=== PATIENT | female | born 1930 | race Caucasian/White ===

== ENCOUNTER 2017-11-17 17:04 | Inpatient (IN) | payer MEDICARE, MEDICAID ==
[~2017-11-17] VITALS: Ht 165.1 cm; Wt 72.8 kg
[~2017-11-17 17:04] MED LIST: ACET325S8 PO; ADVI200C9 PO; ASPI-130 PO; BENI40TA30 PO; CRAN1000 PO; CYAN1000P IM; MAGN400T19 PO; SYNT125T PO; TOPR50TA PO; VITA20002 PO; [UNRECOGNIZED DRUG - CODE] PO
[2017-11-17 17:12] VITALS: BP 146/66; PULSE 90; RESP 16; TEMP 98; O2SAT 97
[2017-11-17 17:55] LABS: AUTOMATED NEUTROPHIL # 9.5 TH/MM3 (1.8-7.7); BASOPHIL % 0.3 % (0.0-2.0); EOSINOPHIL % 0.1 % (0.0-4.0); HEMATOCRIT 32.6 % (35.0-46.0); HEMOGLOBIN 10.9 GM/DL (11.6-15.3); LYMPH % 4.4 % (9.0-44.0); LYMPHOCYTE # 0.5 TH/MM3 (1.0-4.8); MEAN CELL VOLUME 86.7 FL (80.0-100.0); MEAN CORPUSCULAR HGB CONC 33.4 % (32.0-36.0); MEAN PLATELET VOLUME 7.7 FL (7.0-11.0); MONO % 5.5 % (0.0-8.0); MONOCYTE # 0.6 TH/MM3 (0-0.9); NEUT % 89.7 % (16.0-70.0); PLATELET COUNT 270 TH/MM3 (150-450); RED BLOOD COUNT 3.77 MIL/MM3 (4.00-5.30); WHITE BLOOD COUNT 10.6 TH/MM3 (4.0-11.0)
[2017-11-17 18:10] LABS: INTERNATIONAL NORMALIZED RATIO 1.1 RATIO; PROTHROMBIN TIME - PATIENT 11.5 SEC (9.8-11.6)
[2017-11-17 18:14] LABS: ALBUMIN 3.2 GM/DL (3.4-5.0); AST (GOT) 63 U/L (15-37); BICARBONATE 25.4 MEQ/L (21.0-32.0); BLOOD UREA NITROGEN 10 MG/DL (7-18); CALCIUM 9.1 MG/DL (8.5-10.1); CHLORIDE 104 MEQ/L (98-107); CREATININE 0.76 MG/DL (0.50-1.00); GLOMERULAR FILTRATION RATE 72 ML/MIN (>89); GLUCOSE,RANDOM 134 MG/DL (74-106); MAGNESIUM 1.9 MG/DL (1.5-2.5); SODIUM (NA) 138 MEQ/L (136-145)
[2017-11-17 18:15] LABS: ALT (GPT) 28 U/L (10-53)
[2017-11-17 18:24] LABS: ALKALINE PHOSPHATASE 96 U/L (45-117); TOTAL BILIRUBIN ADULT 0.8 MG/DL (0.2-1.0); TOTAL PROTEIN 6.8 GM/DL (6.4-8.2)
--- NOTE | 2017-11-17 18:25 | RADRPT ---
EXAM DATE/TIME: 11/17/2017 17:56 [facility] COMPARISON: No previous studies available for comparison. INDICATIONS : Shortness of breath. MEDICAL HISTORY : No pertinent medical history. SURGICAL HISTORY : No pertinent surgical history. ENCOUNTER: Initial ACUITY: 1 day PAIN SCORE: 0/10 LOCATION: Bilateral chest FINDINGS: A single view of the chest demonstrates the lungs to be symmetrically aerated without evidence of mas s, infiltrate or effusion. The cardiomediastinal contours are unremarkable atherosclerotic calcifica tion in the aortic 9. Osseous structures are intact. CONCLUSION: No acute disease. Wolf Melendez MD on November 17, 2017 at 18:22 Board Certified Radiologist. This report was verified electronically.
--- NOTE | 2017-11-17 18:28 | RADRPT ---
EXAM DATE/TIME: 11/17/2017 18:00 [facility] COMPARISON: No previous studies available for comparison. INDICATIONS : Low back pain for four years. MEDICAL HISTORY : No pertinent medical history. SURGICAL HISTORY : No pertinent surgical history. ENCOUNTER: Initial ACUITY: >1 year PAIN SCORE: 10/10 LOCATION: Bilateral lumbar spine. FINDINGS: The bony structures appear osteopenic or osteoporotic with normal alignment and probable facet arthri tic change L4-5 and L5-S1. CONCLUSION: Osteopenia or osteoporosis. Degenerative facet arthritic change L4-5 and L5-S1 Wolf Melendez MD on November 17, 2017 at 18:24 Board Certified Radiologist. This report was verified electronically.
--- NOTE | 2017-11-17 18:29 | RADRPT ---
EXAM DATE/TIME: 11/17/2017 18:00 [facility] COMPARISON: No previous studies available for comparison. INDICATIONS : Right hip pain for four years. MEDICAL HISTORY : No pertinent medical history SURGICAL HISTORY : No pertinent surgical history. ENCOUNTER: Initial ACUITY: >1 year PAIN SCORE: 10/10 LOCATION: Right hip. FINDINGS: The bony structures are osteoporotic. Minimal narrowing the left hip joint with degenerative changes in lower lumbar spine. There is severe degenerative change of the right hip loss of articular cartila ge subchondral sclerosis and cyst formation. CONCLUSION: Severe degenerative change of the right hip. Wolf Melendez MD on November 17, 2017 at 18:26 Board Certified Radiologist. This report was verified electronically.
--- NOTE | 2017-11-17 18:42 | PD ---
Data Data Last Documented VS Vital Signs Date Time Temp Pulse Resp B/P (MAP) Pulse Ox O2 Delivery O2 Flow Rate FiO2 11/17/17 17:12 98.0 90 16 146/66 (92) 97 Orders Orders Electrocardiogram (11/17/17:) Complete Blood Count With Diff (11/17/17 17:22) Comprehensive Metabolic Panel (11/17/17:) Troponin I (11/17/17) Prothrombin Time / Inr (Pt) (11/17/17) Act Partial Throm Time (Ptt) (11/17/17) Urinalysis - C+S If Indicated (11/17/17) Magnesium (Mg) (11/17/17) Thyroid Stimulating Hormone (11/17/17) Chest, Single Ap (11/17/17) Iv Access Insert/Monitor (11/17/17) Ecg Monitoring (11/17/17) Oximetry (11/17/17) Hip, Ap Only W Ap Pelvis (11/17/17 ) Spine, Lumbar - Ap Only (11/17/17 ) Labs Laboratory Tests Test 11/17/17 17:36 White Blood Count 10.6 TH/MM3 Red Blood Count 3.77 MIL/MM3 Hemoglobin 10.9 GM/DL Hematocrit 32.6 % Mean Corpuscular Volume 86.7 FL Mean Corpuscular Hemoglobin 29.0 PG Mean Corpuscular Hemoglobin Concent 33.4 % Red Cell Distribution Width 14.0 % Platelet Count 270 TH/MM3 Mean Platelet Volume 7.7 FL Neutrophils (%) (Auto) 89.7 % Lymphocytes (%) (Auto) 4.4 % Monocytes (%) (Auto) 5.5 % Eosinophils (%) (Auto) 0.1 % Basophils (%) (Auto) 0.3 % Neutrophils # (Auto) 9.5 TH/MM3 Lymphocytes # (Auto) 0.5 TH/MM3 Monocytes # (Auto) 0.6 TH/MM3 Eosinophils # (Auto) 0.0 TH/MM3 Basophils # (Auto) 0.0 TH/MM3 CBC Comment DIFF FINAL Differential Comment Prothrombin Time 11.5 SEC Prothromb Time International Ratio 1.1 RATIO Activated Partial Thromboplast Time 28.6 SEC Blood Urea Nitrogen 10 MG/DL Creatinine 0.76 MG/DL Random Glucose 134 MG/DL Total Protein 6.8 GM/DL Albumin 3.2 GM/DL Calcium Level 9.1 MG/DL Magnesium Level 1.9 MG/DL Alkaline Phosphatase 96 U/L Aspartate Amino Transf (AST/SGOT) 63 U/L Alanine Aminotransferase (ALT/SGPT) 28 U/L Total Bilirubin 0.8 MG/DL Sodium Level 138 MEQ/L Potassium Level 3.6 MEQ/L Chloride Level 104 MEQ/L Carbon Dioxide Level 25.4 MEQ/L Anion Gap 9 MEQ/L Estimat Glomerular Filtration Rate 72 ML/MIN Troponin I 0.20 NG/ML Thyroid Stimulating Hormone 3rd Gen 3.080 uIU/ML [facility] Supervised Visit with LUCIAN: Yes Narrative Course The history, exam, and medical decision-making in the associated mid-level provider note were completed with my assistance. I reviewed and agree with the findings presented. I attest that I had a [id number] encounter with the patient on the same day, and personally performed and documented my assessment and findings in the medical record. *My assessment and Findings: 87-year-old woman presents emergency department with recurrent frequent falls, some weakness, hip pain, worsening over the past week or so. History of chronic problems of the right hip pain gotten worse, and she has had more frequent falls, for the past 2 days. She looks overall well. She is a positive troponin. She has been getting clearance for hip surgery. She had a stress test recently. We will plan on admission for further evaluation for serial troponins, repeat evaluation of the hip, PT alonzoal. Stuart Pimentel MD Nov 17, 2017 18:42
[2017-11-17 18:53] VITALS: BP 159/66; PULSE 73; PULSE 74; RESP 18; O2SAT 95; O2SAT 96
--- NOTE | 2017-11-17 19:14 | PD ---
HPI Chief Complaint: Hip Injury Time Seen by Provider: 17:22 Travel History International Travel<30 days: No Contact w/Intl Traveler<30days: No Traveled to known affect area: No History of Present Illness HPI 87-year-old female that presents to the ED for evaluation of multiple falls. Per patient and ambulance report patient has falling multiple times the past couple of weeks. Patient per ambulance report falls at least once a day and even has to go to her house at least once a day to help her get up. Patient has a history of right hip arthritis that will require hip replacement with Dr. Hunter. Per patient she just got her cast by Dr. Rice last week to see whether she will be a candidate for surgery and is continuing to follow up with different doctors to get her medical clearance and she have the surgery. She lives alone. Apparently patient had a fall yesterday but she also had a fall today which per patient was mild. Per patient she had another fall after the ambulance left and her friends left. This is what prompted evaluation. She denies hitting her head or losing consciousness. Per patient she landed on her head. She states having back and hip pain secondary to the hip pain as well as the multiple falls. She does have bruises in multiple areas of her body. She states that she is being treated currently for cellulitis of her lower legs bilaterally. She does have erythema and she states that she taking the antibiotics as prescribed by her doctor. The patient her pain currently is 4 out of 10. Per patient she is taking Tylenol for her pain with some relief. Per patient she is a walker at home but for the past 3-4 days she can barely even use it because she feels like her legs are no limited go and she is going to fall. She feels very weak on her legs and she is also noted that she's been feeling dizzy and lightheaded. Per patient she was dizzy when the ambulance showed up. Allergy to hydrocodone. PFSH Past Medical History Anemia: Yes (PERNICIOUS ) Cancer: No Cardiovascular Problems: No Diabetes: No Endocrine: Yes Gastrointestinal Disorders: No Genitourinary: No Hepatitis: No Hiatal Hernia: No Hypertension: Yes Immune Disorder: No Medical other: Yes (PERNISCIOUS ANEMIA) Musculoskeletal: Yes (ARTHRITIS, BACK PROBLEMS,OSTEOPOROSIS) Neurologic: Yes (TINGLING IN TOES AT NIGHT) Psychiatric: No Reproductive: No Respiratory: Yes (HISTORY OF WHOOPING COUGH A CHILD) Thyroid Disease: Yes Tetanus Vaccination: Unknown Influenza Vaccination: Yes ?: Not Past Surgical History AICD: No Endocrine Surgery: Yes (PARATHYROID TUMOR REMOVED 2006, THYROIDECTOMY 193) Joint Replacement: No Pacemaker: No Other Surgery: Yes (THYROIDECTOMY IN PAST, PARATHYROID SURG. 4 DAYS AGO.) Social History Alcohol Use: No Tobacco Use: No Substance Use: No Allergies-Medications (Allergen,Severity, Reaction): Coded Allergies: hydrocodone (Unverified Adverse Reaction, Mild, RASH, 05/21/17) PT STATES PROBABLY NOT AN ALLERGY BUT HAD SLIGHT RASH ON HYDROCODONE Reported Meds & Prescriptions Reported Meds & Active Scripts Active Reported Acetaminophen 325 Mg Tab 325 Mg PO Q4HPRN Advil (Ibuprofen) 200 Mg Cap 200 Mg PO Q4HPRN Aspirin EC Low Dose (Aspirin) 81 Mg Tab 81 Mg PO HS Vitamin B12 (Cyanocobalamin) 1,000 Mcg/Ml Inj 1,000 Mcg IM MONTHLY Cranberry (Cranberry (Vaccinium Macrocarp) 1,000 Mg Cap 4,200 Mg PO TID Toprol Xl (Metoprolol Succinate) 50 Mg Tabcr 50 Mg PO DAILY Vitamin D-3 (Cholecalciferol) 2 000 Tab 2,000 Unit PO DAILY Coq10 (Coenzyme Q10 (Ubidecarenone)) 50 Gm Pow 50 Gm PO BID Benicar (Olmesartan) 40 Mg Tab 40 Mg PO DAILY Magnesium Oxide (Magnesium Oxide (mg Supplement)) 400 Mg Tab 400 Mg PO BID Synthroid (Levothyroxine Sodium) 125 Mcg Tab 125 Mcg PO DAILY Review of Systems Except as stated in HPI: all other systems reviewed are Neg Physical Exam Narrative GENERAL: SKIN: Warm and dry. HEAD: Atraumatic. Normocephalic. EYES: Pupils equal and round. No scleral icterus. No injection or drainage. ENT: No nasal bleeding or discharge. Mucous membranes pink and moist. Tongue is midline. No uvula deviation. NECK: Trachea midline. No JVD. CARDIOVASCULAR: Regular rate and rhythm. No murmurs, S3, S4. RESPIRATORY: No accessory muscle use. Clear to auscultation. Breath sounds equal bilaterally. GASTROINTESTINAL: Abdomen soft, non-tender, nondistended. Hepatic and splenic margins not palpable. MUSCULOSKELETAL: Extremities without clubbing, cyanosis, or edema. No obvious deformities. Patient is evaluated late on her left side. She cannot put any weight on the right side secondary to pain. Patient has no obvious deformity noted. No lumbar, thoracic, cervical spine tenderness to palpation. Full range of motion of the upper and lower extremities with exception of the right hip which she has pain with any range of motion. 2+ pulses bilaterally. Sensation intact bilaterally. Patient has bilateral lower leg edema 1+ pitting edema with erythema on the anterior aspect of the legs bilaterally. Warm to the touch. NEUROLOGICAL: Awake and alert. No obvious cranial nerve deficits. Motor grossly within normal limits. Five out of 5 muscle strength in the arms and legs. Normal speech. PSYCHIATRIC: Appropriate mood and affect; insight and judgment normal. Data Data Last Documented VS Vital Signs Date Time Temp Pulse Resp B/P (MAP) Pulse Ox O2 Delivery O2 Flow Rate FiO2 11/17/17 19:11 18 92 Room Air 11/17/17 18:53 74 159/66 (97) 11/17/17 17:12 98.0 Orders Orders Electrocardiogram (11/17/17:22) Complete Blood Count With Diff (11/17/17 17:22) Comprehensive Metabolic Panel (11/17/17:22) Troponin I (11/17/17 17:22) Prothrombin Time / Inr (Pt) (11/17/17:22) Act Partial Throm Time (Ptt) (11/17/17:22) Urinalysis - C+S If Indicated (11/17/17:22) Magnesium (Mg) (11/17/17 17:22) Thyroid Stimulating Hormone (11/17/17:22) Chest, Single Ap (11/17/17:22) Iv Access Insert/Monitor (11/17/17 17:22) Ecg Monitoring (11/17/17:22) Oximetry (11/17/17:22) Hip, Ap Only W Ap Pelvis (11/17/17 ) Spine, Lumbar - Ap Only (11/17/17 ) Aspirin (Aspirin) (11/17/17 19:15) Heparin-D5w 25,000 U/250 Ml (Heparin-D5w (11/17/17 19:30) Act Partial Throm Time (Ptt) (11/17/17 19:22) Prothrombin Time / Inr (Pt) (11/17/17 19:22) Cbc No Diff, Includes Plts (11/17/17 19:22) Cbc No Diff, Includes Plts (11/20/17 06:00) Act Partial Throm Time (Ptt) (11/18/17 02:22) Occult Blood (Hemoccult) Stool (11/17/17 19:22) Admit Order (Ed Use Only) (11/17/17 19:25) Metoprolol Tartrate (Lopressor) (11/17/17 21:00) Nitroglycerin 2% Oint (Nitroglycerin 2% (11/17/17 19:30) Admit To Inpatient (11/17/17 ) Vital Signs (Adult) Q4H (11/17/17:20) Activity Bed Rest (11/17/17:20) Computer Laboratory Technician / Telemetry .CONTINUOUS (11/17/17:20) Intake + Output RAS.QSHIFT (11/17/17 19:20) Diet Heart Healthy (11/18/17 Breakfast) Sodium Chlor 0.9% 1000 Ml Inj (Ns 1000 M (11/17/17 20:00) Sodium Chloride 0.9% Flush (Ns Flush) (11/17/17 19:30) Sodium Chloride 0.9% Flush (Ns Flush) (11/17/17 21:00) Ondansetron Inj (Zofran Inj) (11/17/17 19:30) Comprehensive Metabolic Panel (11/18/17 06:00) Complete Blood Count With Diff (11/18/17 06:00) Troponin I (11/18/17 00:00) Troponin I (11/18/17 06:00) Pt Request For Service (11/17/17 19:20) Case Management Consult (11/17/17 19:20) Acetaminophen (Tylenol) (11/17/17 19:30) Morphine Inj (Morphine Inj) (11/17/17 19:30) Docusate Sodium-Senna (Becki-Colace) (11/17/17 21:00) Magnesium Hydroxide Liq (Milk Of Magnesi (11/17/17 19:30) Sennosides (Senokot) (11/17/17 19:30) Bisacodyl Supp (Dulcolax Supp) (11/17/17 19:30) Lactulose Liq (Lactulose Liq) (11/17/17 19:30) Inpatient Certification (11/17/17 ) Labs Laboratory Tests Test 11/17/17 17:36 White Blood Count 10.6 TH/MM3 Red Blood Count 3.77 MIL/MM3 Hemoglobin 10.9 GM/DL Hematocrit 32.6 % Mean Corpuscular Volume 86.7 FL Mean Corpuscular Hemoglobin 29.0 PG Mean Corpuscular Hemoglobin Concent 33.4 % Red Cell Distribution Width 14.0 % Platelet Count 270 TH/MM3 Mean Platelet Volume 7.7 FL Neutrophils (%) (Auto) 89.7 % Lymphocytes (%) (Auto) 4.4 % Monocytes (%) (Auto) 5.5 % Eosinophils (%) (Auto) 0.1 % Basophils (%) (Auto) 0.3 % Neutrophils # (Auto) 9.5 TH/MM3 Lymphocytes # (Auto) 0.5 TH/MM3 Monocytes # (Auto) 0.6 TH/MM3 Eosinophils # (Auto) 0.0 TH/MM3 Basophils # (Auto) 0.0 TH/MM3 CBC Comment DIFF FINAL Differential Comment Prothrombin Time 11.5 SEC Prothromb Time International Ratio 1.1 RATIO Activated Partial Thromboplast Time 28.6 SEC Blood Urea Nitrogen 10 MG/DL Creatinine 0.76 MG/DL Random Glucose 134 MG/DL Total Protein 6.8 GM/DL Albumin 3.2 GM/DL Calcium Level 9.1 MG/DL Magnesium Level 1.9 MG/DL Alkaline Phosphatase 96 U/L Aspartate Amino Transf (AST/SGOT) 63 U/L Alanine Aminotransferase (ALT/SGPT) 28 U/L Total Bilirubin 0.8 MG/DL Sodium Level 138 MEQ/L Potassium Level 3.6 MEQ/L Chloride Level 104 MEQ/L Carbon Dioxide Level 25.4 MEQ/L Anion Gap 9 MEQ/L Estimat Glomerular Filtration Rate 72 ML/MIN Troponin I 0.20 NG/ML Thyroid Stimulating Hormone 3rd Gen 3.080 uIU/ML [facility]DM Medical Decision Making Medical Screen Exam Complete: Yes Emergency Medical Condition: Yes Medical Record Reviewed: Yes Interpretation(s) CBC & BMP Diagram 11/17/17 17:36 Total Protein 6.8, Albumin 3.2 L, Calcium Level 9.1, Magnesium Level 1.9, Alkaline Phosphatase 96, Aspartate Amino Transf (AST/SGOT) 63 H, Alanine Aminotransferase (ALT/SGPT) 28, Total Bilirubin 0.8 EKG shows sinus rhythm with no sign of acute ischemia or arrhythmia related by me and attending. troponin of 0.20 CK negative Last Impressions Chest X-Ray 11/17/17 1722 Signed Impressions: Service Date/Time: Friday, November 17, 2017 17:56 - CONCLUSION: No acute disease. Wolf Melendez MD Lumbar Spine X-Ray 11/17/17 0000 Signed Impressions: Service Date/Time: Friday, November 17, 2017 18:00 - CONCLUSION: Osteopenia or osteoporosis. Degenerative facet arthritic change L4-5 and L5-S1 Wolf Melendez MD Hip and Pelvis X-Ray 11/17/17 0000 Signed Impressions: Service Date/Time: Friday, November 17, 2017 18:00 - CONCLUSION: Severe degenerative change of the right hip. Wolf Melendez MD Differential Diagnosis Fall versus chest pain versus ACS versus weakness versus fracture versus inability to ambulate versus N STEMI Narrative Course 87-year-old female that presents to the ED for evaluation of falls and pain. Patient was properly examined and was found to have signs and symptoms of unclear etiology with appears to be likely deconditioning secondary to significant arthritis of her right hip and inability to ambulate because of the pain. She also states that she feels dizzy. Because of the multiple falls of the recommends imaging and labs to make sure patient doesn't have anything acute especially because of her weakness. Labs and imaging came back negative for acute disease but did show severe arthritis. Patient does have a positive troponin of 0.20 with the first time she's been positive in the past. I spoke with my attending Dr. Pimentel who evaluated the patient and recommends admission for further eval of this as well as patient will likely require placement as she lives by herself and she cannot take care of herself. Dr. Gonzalez was contacted and wants patient to be admitted. Wanted me to consult with cardiology and to start patient on heparin to rule out NSTEMI. I discussed the case with Dr. Gonzalez who agrees with consult in the hospital. Diagnosis Primary Impression: NSTEMI (non-ST elevated myocardial infarction) Additional Impressions: Arthritis of hip Multiple falls Admitting Information Admitting Physician Requests: Admit Сергей Pierson Nov 17, 2017 19:14
[2017-11-17] MEDS ORDERED: ASPIRIN 325 MG TAB PO ONE (19:15)
--- NOTE | 2017-11-17 19:28 | HHI.HP ---
HPI Service [facility] Primary Care Physician Unknown Admission Diagnosis NSTEMI, multiple falls, inabiltiy to ambulate Diagnoses: (1) NSTEMI (non-ST elevated myocardial infarction) Diagnosis: Principal (2) Recurrent falls Diagnosis: Principal (3) Right hip pain Diagnosis: Principal (4) Dehydration Diagnosis: Principal Travel History International Travel<30 Days: No Contact w/Intl Traveler <30 Da: No Traveled to Known Affected Are: No History of Present Illness This is an 87-year-old female with a PMH of HTN, Hypothyroidism, Arthritis, Anemia and Chronic Right Hip Pain was brought to the ER by EMS secondary to right hip pain with difficulty ambulating. Per patient, she's been following w / Dr. Billings for right hip pain, s/p PT and right hip injections w/ minimal improvement. Plan was for likely surgical intervention, however referred to Dr. Rice for pre-op clearance. Per patient, seen by Dr. Rice w/ normal work up. Today, w/ persistent right hip pain, unable to ambulate even w / walker. Pain is constant, severe, 10/10, worse w/ movement and ambulation. Multiple falls due to hip pain and gait instability. No head trauma or LOC. On arrival, BP 146/66, HR 90, O2 sat 97% on RA, Afebrile. CBC essentially unremarkable. GFR 72. Troponin 0.20. EKG with no acute ischemia. CXR no acute findings. Hip X-ray with severe degenerative change of the right hip. Lumbar X-ray osteopenia or osteoporosis. S/p ASA, started on Heparin gtt. Dr. Thomas consulted, will eval in am. Review of Systems Except as stated in HPI: all other systems reviewed are Neg ROS: 14 point review of systems otherwise negative. Past Family Social History Past Medical History PMH: HTN, Hypothyroidism, Arthritis, Anemia and Chronic Right Hip Pain Past Surgical History PAST SURGICAL HISTORY: Parathyroidectomy, Thyroidectomy Allergies: Coded Allergies: hydrocodone (Unverified Adverse Reaction, Mild, RASH, 05/21/17) PT STATES PROBABLY NOT AN ALLERGY BUT HAD SLIGHT RASH ON HYDROCODONE Family History PAST FAMILY HISTORY: Reviewed. No h/o DM or CAD Social History PAST SOCIAL HISTORY: Negative for alcohol, tobacco or drugs. Physical Exam Vital Signs Vital Signs Date Time Temp Pulse Resp B/P (MAP) Pulse Ox O2 Delivery O2 Flow Rate FiO2 11/17/17 19:11 18 92 Room Air 11/17/17 18:53 74 18 159/66 (97) 95 Room Air 11/17/17 18:53 73 96 11/17/17 17:12 98.0 90 16 146/66 (92) 97 Physical Exam PE: GENERAL: Extremely pleasant elderly white female in no acute distress. HEENT: PERRLA, EOMI. No scleral icterus or conjunctival pallor. No lid lag or facial droop. CARDIOVASCULAR: Regular rate and rhythm. No obvious murmurs to auscultation. No chest tenderness to palpation. RESPIRATORY: No obvious rhonchi or wheezing. Clear to auscultation. Breath sounds equal bilaterally. GASTROINTESTINAL: Abdomen soft, non-tender, nondistended. BS normal. MUSCULOSKELETAL: Extremities without clubbing, cyanosis, or edema. No obvious deformities. Decreased ROM of RLE due to pain. +erythema/edema bilateral anterior lower extremities. NEUROLOGICAL: Awake, alert and oriented x4. No focal neurologic deficits. Moving both upper and lower extremities spontaneously. Laboratory Laboratory Tests Test 11/17/17 17:36 White Blood Count 10.6 Red Blood Count 3.77 Hemoglobin 10.9 Hematocrit 32.6 Mean Corpuscular Volume 86.7 Mean Corpuscular Hemoglobin 29.0 Mean Corpuscular Hemoglobin Concent 33.4 Red Cell Distribution Width 14.0 Platelet Count 270 Mean Platelet Volume 7.7 Neutrophils (%) (Auto) 89.7 Lymphocytes (%) (Auto) 4.4 Monocytes (%) (Auto) 5.5 Eosinophils (%) (Auto) 0.1 Basophils (%) (Auto) 0.3 Neutrophils # (Auto) 9.5 Lymphocytes # (Auto) 0.5 Monocytes # (Auto) 0.6 Eosinophils # (Auto) 0.0 Basophils # (Auto) 0.0 CBC Comment DIFF FINAL Differential Comment Prothrombin Time 11.5 Prothromb Time International Ratio 1.1 Activated Partial Thromboplast Time 28.6 Blood Urea Nitrogen 10 Creatinine 0.76 Random Glucose 134 Total Protein 6.8 Albumin 3.2 Calcium Level 9.1 Magnesium Level 1.9 Alkaline Phosphatase 96 Aspartate Amino Transf (AST/SGOT) 63 Alanine Aminotransferase (ALT/SGPT) 28 Total Bilirubin 0.8 Sodium Level 138 Potassium Level 3.6 Chloride Level 104 Carbon Dioxide Level 25.4 Anion Gap 9 Estimat Glomerular Filtration Rate 72 Troponin I 0.20 Thyroid Stimulating Hormone 3rd Gen 3.080 Result Diagram: 11/17/17 1736 11/17/171735 Caprini VTE Risk Assessment Caprini VTE Risk Assessment: Mod/High Risk (score >= 2) Caprini Risk Assessment Model Point Value = 1 Point Value = 2 Point Value = 3 Point Value = 5 Age 41-60 Minor surgery BMI > 25 kg/m2 Swollen legs Varicose veins or History of unexplained or recurrent spontaneous Oral contraceptives or hormone replacement Sepsis (< 1 month) Serious lung disease, including pneumonia (< 1 month) Abnormal pulmonary function Acute myocardial infarction Congestive heart failure (< 1 month) History of inflammatory bowel disease Medical patient at bed rest Age 61-74 Arthroscopic surgery Major open surgery (> 45 min) Laparoscopic surgery (> 45 min) Malignancy Confined to bed (> 72 hours) Immobilizing plaster cast Central venous access Age >= 75 History of VTE Family history of VTE Factor V Leiden Prothrombin [id number] Lupus anticoagulant Anticardiolipin antibodies Elevated serum homocysteine Heparin-induced thrombocytopenia Other congenital or acquired thrombophilia Stroke (< 1 month) Elective arthroplasty Hip, pelvis, or leg fracture Acute spinal cord injury (< 1 month) Prophylaxis Regimen Total Risk Factor Score Risk Level Prophylaxis Regimen 0-1 Low Early ambulation 2 Moderate Order ONE of the following: *Sequential Compression Device (SCD) *Heparin 5000 units SQ BID 3-4 Higher Order ONE of the following medications: *Heparin 5000 units SQ TID *Enoxaparin/Lovenox 40 mg SQ daily (WT < 150 kg, CrCl > 30 mL/min) *Enoxaparin/Lovenox 30 mg SQ daily (WT < 150 kg, CrCl > 10-29 mL/min) *Enoxaparin/Lovenox 30 mg SQ BID (WT < 150 kg, CrCl > 30 mL/min) AND/OR *Sequential Compression Device (SCD) 5 or more Highest Order ONE of the following medications: *Heparin 5000 units SQ TID (Preferred with Epidurals) *Enoxaparin/Lovenox 40 mg SQ daily (WT < 150 kg, CrCl > 30 mL/min) *Enoxaparin/Lovenox 30 mg SQ daily (WT < 150 kg, CrCl > 10-29 mL/min) *Enoxaparin/Lovenox 30 mg SQ BID (WT < 150 kg, CrCl > 30 mL/min) AND *Sequential Compression Device (SCD) Assessment and Plan Problem List: (1) NSTEMI (non-ST elevated myocardial infarction) ICD Code: I21.4 - Non-ST elevation (NSTEMI) myocardial infarction Status: Acute (2) Right hip pain ICD Code: M25.551 - Pain in right hip (3) Recurrent falls ICD Code: R29.6 - Repeated falls (4) Dehydration ICD Code: E86.0 - Dehydration Assessment and Plan A/P: 1. NSTEMI: Trop 0.20, EKG w/ no acute ischemia, no c/o chest pain. Recently following w/ Dr. Rice as outpatient for pre-op eval for possible right hip surgery, reports negative work up. Continue w/ Heparin, Start Metoprolol/ Statin. NTG/Morphine prn as needed. Check serial cardiac enzymes for trend. Admit to [facility], place on telemetry. Dr. Thomas consulted, will eval in am. 2. Right Hip Pain: Acute on Chronic. Progressive. Secondary to severe degenerative disease. Following w/ Dr. Billings as outpatient, conservative treatment w/ PT and hip injections w/ no improvement, progressive decline in functional status. Consult Dr. Billings for further evaluation, will need stabilization from cardiac standpoint prior to surgical intervention. Analgesics/antiemetics as needed. PT for eval/tx. Hip X-ray w/ severe degenerative disease, images reviewed by me. 3. Recurrent Falls: secondary to hip pain w/ worsening functional status. No head trauma or LOC reported. Lumbar X-ray w/ no acute findings, images reviewed by me. PT for eval/tx. Will likely need social work assistance for placement as pt lives alone. 4. Dehydration: GFR 72. IVF for hydration, repeat labs in am. Check U/a to eval for possible underlying UTI. 5. DVT Prophylaxis: Heparin gtt 6. Social work for d/c planning as needed 7. Case discussed at length w/ ER physician, labs/records/imaging reviewed by me. Physician Certification 2 Midnight Certification Type: Admission for Inpatient Services Order for Inpatient Services The services are ordered in accordance with Medicare regulations or non- Medicare payer requirements, as applicable. In the case of services not specified as inpatient-only, they are appropriately provided as inpatient services in accordance with the 2-midnight benchmark. Estimated LOS (days): 2 days is the estimated time the patient will need to remain in the hospital, assuming treatment plan goals are met and no additional complications. Post-Hospital Plan: Not yet determined Yolande Gonzalez MD Nov 17, 2017 19:28
[2017-11-17] MEDS ORDERED: LACTULOSE SYRUP 20 GM/30 ML CUP PO PRN (19:30)
[2017-11-17] MEDS ORDERED: SODIUM CHLORIDE 0.9% FLUSH 10 ML FLUSH IV FLUSH PRN (19:30)
[2017-11-17] MEDS ORDERED: ONDANSETRON HCL 4 MG/2 ML VIAL IVP PRN (19:30)
[2017-11-17] MEDS ORDERED: MAGNESIUM HYDROXIDE SUSP 30 ML CUP PO PRN (19:30)
[2017-11-17] MEDS ORDERED: ACETAMINOPHEN 325 MG TAB PO PRN (19:30)
[2017-11-17] MEDS ORDERED: NITROGLYCERIN 2% OINT 1 GM PACKET TOPICAL PRN (19:30)
[2017-11-17] MEDS ORDERED: SENNOSIDES 8.6 MG TAB PO PRN (19:30)
[2017-11-17] MEDS ORDERED: BISACODYL 10 MG SUPP RECTAL PRN (19:30)
[2017-11-17 20:00] VITALS: BP 170/71; PULSE 74; RESP 17; O2SAT 93
[2017-11-17 21:00] VITALS: BP 167/66; PULSE 80; RESP 18; O2SAT 96
[2017-11-17] MEDS: DOCUSATE SODIUM 50 MG/SENNA 8.6 MG TAB PO SCH (21:25)
[2017-11-17] MEDS: METOPROLOL TARTRATE 25 MG TAB PO SCH (21:25)
[2017-11-17] MEDS: SODIUM CHLORIDE 0.9% FLUSH 10 ML FLUSH IV FLUSH SCH (21:25)
[2017-11-17] MEDS: HEPARIN-D5W 25,000 U/250 ML 250 ML IV PRN (21:49)
[2017-11-17 22:00] VITALS: BP 136/65; PULSE 80; RESP 16; O2SAT 96
[2017-11-17 22:07] LABS: BILIRUBIN, URINE NEG (NEG); BLOOD, URINE TRACE (NEG); GLUCOSE,URINE NEG (NEG); KETONE, URINE 10 mg/dL (NEG); MUCUS URINE FEW /lpf (OCC); NITRITE,URINE NEG (NEG); SQUAMOUS EPITHELIAL CELL URINE <1 /hpf (0-5); URINE COLOR YELLOW (YELLW/STRAW); URINE LEUKOCYTE ESTERASE TRACE (NEG)
[2017-11-18] VITALS (17 sets, daily range): BP systolic 136–184; BP diastolic 64–81; PULSE 60–92; RESP 16–20; TEMP 98–98.4; O2SAT 95–100
[2017-11-18] MEDS ORDERED: LOSA50TA PO (00:26)
[2017-11-18] MEDS ORDERED: SYNT112T PO (00:26)
[2017-11-18] MEDS ORDERED: METO50TA PO (00:26)
[2017-11-18] MEDS: SODIUM CHLOR 0.9% 1000 ML INJ 1,000 ML IV SCH ×3 (01:26→16:47)
[2017-11-18] MEDS ORDERED: LEVO50TA4 PO (01:53)
[2017-11-18] MEDS: LEVOTHYROXINE SODIUM 112 MCG TAB PO SCH (05:49)
[2017-11-18 06:29] LABS: AUTOMATED NEUTROPHIL # 6.5 TH/MM3 (1.8-7.7); BASOPHIL % 0.5 % (0.0-2.0); EOSINOPHIL # 0.2 TH/MM3 (0-0.4); EOSINOPHIL % 1.7 % (0.0-4.0); HEMATOCRIT 31.1 % (35.0-46.0); HEMOGLOBIN 10.5 GM/DL (11.6-15.3); LYMPH % 9.8 % (9.0-44.0); LYMPHOCYTE # 0.9 TH/MM3 (1.0-4.8); MEAN CORPUSCULAR HGB CONC 33.8 % (32.0-36.0); MEAN PLATELET VOLUME 8.3 FL (7.0-11.0); MONO % 13.2 % (0.0-8.0); MONOCYTE # 1.2 TH/MM3 (0-0.9); NEUT % 74.8 % (16.0-70.0); PLATELET COUNT 260 TH/MM3 (150-450); RED BLOOD COUNT 3.61 MIL/MM3 (4.00-5.30); RED CELL DISTRIBUTION WIDTH 14.2 % (11.6-17.2); WHITE BLOOD COUNT 8.7 TH/MM3 (4.0-11.0)
[2017-11-18 06:42] LABS: ALBUMIN 2.9 GM/DL (3.4-5.0); AST (GOT) 65 U/L (15-37); BICARBONATE 25.4 MEQ/L (21.0-32.0); BLOOD UREA NITROGEN 8 MG/DL (7-18); CALCIUM 8.3 MG/DL (8.5-10.1); CHLORIDE 106 MEQ/L (98-107); CREATININE 0.58 MG/DL (0.50-1.00); GLOMERULAR FILTRATION RATE 98 ML/MIN (>89); GLUCOSE,RANDOM 82 MG/DL (74-106); SODIUM (NA) 140 MEQ/L (136-145)
[2017-11-18 06:47] LABS: ALKALINE PHOSPHATASE 85 U/L (45-117); ALT (GPT) 23 U/L (10-53); TOTAL BILIRUBIN ADULT 0.7 MG/DL (0.2-1.0); TOTAL PROTEIN 6.2 GM/DL (6.4-8.2); TROPONIN I 0.17 NG/ML (0.02-0.05)
--- NOTE | 2017-11-18 08:04 | PD.CONS ---
HPI Service [facility] Consult Requested By Primary Care Physician Unknown Admission Diagnosis NSTEMI, multiple falls, inabiltiy to ambulate Diagnoses: (1) NSTEMI (non-ST elevated myocardial infarction) (2) Right hip pain (3) Recurrent falls (4) Dehydration Chief Complaint: Right Hip Pain with known severe osteoarthritis History of Present Illness 87 yo female known to me with known severe right hip osteoarthritis. She was in the process and obtaining medical and cardiac clearance for hip replacement. She has now had increasing disability and multiple fails. She has been treated for bilateral lower extremity swelling and erythema which was believed to be cellulitis. Past Family Social History Past Medical History PMH: HTN, Hypothyroidism, Arthritis, Anemia and Chronic Right Hip Pain Past Surgical History PAST SURGICAL HISTORY: Parathyroidectomy, Thyroidectomy Allergies: Coded Allergies: hydrocodone (Unverified Adverse Reaction, Mild, RASH, 05/21/17) PT STATES PROBABLY NOT AN ALLERGY BUT HAD SLIGHT RASH ON HYDROCODONE Active Ordered Medications Current Medications Medications (Trade) Dose Ordered Sig/Juan Route Start Time Stop Time Status Last Admin Heparin Sodium/ Dextrose 250 ml @ 9 mls/hr TITRATE PRN IV 11/17/17 19:30 11/17/17 21:49 (Lopressor) 25 mg Q12HR PO 11/17/17 21:00 11/17/17 21:25 (Nitroglycerin 2% Oint) 0.5 inch Q6H PRN TOPICAL 11/17/17 19:30 Sodium Chloride 1,000 ml @ 100 mls/hr Q10H IV 11/17/17 20:00 11/18/17 05:49 (NS Flush) 2 ml UNSCH PRN IV FLUSH 11/17/17 19:30 (NS Flush) 2 ml BID IV FLUSH 11/17/17 21:00 11/17/17 21:25 (Zofran Inj) 4 mg Q6H PRN IVP 11/17/17 19:30 (Tylenol) 650 mg Q6H PRN PO 11/17/17 19:30 (Morphine Inj) 2 mg Q3H PRN IV PUSH 11/17/17 19:30 (Becki-Colace) 1 tab BID PO 11/17/17 21:00 11/17/17 21:25 (Milk Of Magnesia Liq) 30 ml Q12H PRN PO 11/17/17 19:30 (Senokot) 17.2 mg Q12H PRN PO 11/17/17 19:30 (Dulcolax Supp) 10 mg DAILY PRN RECTAL 11/17/17 19:30 (Lactulose Liq) 30 ml DAILY PRN PO 11/17/17 19:30 (Pneumovax-23 Inj) 25 mcg ONCE ONCE IM 11/19/17 10:00 11/19/17 10:01 (Synthroid) 50 mcg Bowman@0600 PO 11/24/17 06:00 (Synthroid) 112 mcg MoTuWeThFrSa@0600 PO 11/18/17 06:00 11/18/17 05:49 (Cozaar) 50 mg DAILY PO 11/18/17 09:00 Reported Meds & Active Scripts Active Reported Levothyroxine (Levothyroxine Sodium) 50 Mcg Tab 50 Mcg PO DAILY SUNDAYS ONLY Losartan (Losartan Potassium) 50 Mg Tab 50 Mg PO DAILY Synthroid (Levothyroxine Sodium) 112 Mcg Tab 112 Mcg PO DAILY SATURDAY THROUGH SATURDAY Metoprolol Tartrate 50 Mg Tab 50 Mg PO BID Family History PAST FAMILY HISTORY: Reviewed. No h/o DM or CAD Social History PAST SOCIAL HISTORY: Negative for alcohol, tobacco or drugs. Physical Exam Vital Signs Vital Signs Date Time Temp Pulse Resp B/P (MAP) Pulse Ox O2 Delivery O2 Flow Rate FiO2 11/18/17 06:00 60 11/18/17 05:00 64 11/18/17 04:00 62 11/18/17 03:45 70 16 136/68 (90) 95 11/18/17 03:00 63 11/18/17 02:00 82 11/18/17 01:20 82 11/18/17 01:06 98.0 77 18 158/73 (101) 95 11/18/17 01:02 11/18/17 00:20 82 16 163/71 (101) 97 Nasal Cannula 2.00 11/17/17 22:00 80 16 136/65 (88) 96 Nasal Cannula 2.00 11/17/17 21:00 80 18 167/66 (99) 96 Nasal Cannula 2.00 11/17/17 20:00 74 17 170/71 (104) 93 Room Air 11/17/17 19:11 18 92 Room Air 11/17/17 18:53 74 18 159/66 (97) 95 Room Air 11/17/17 18:53 73 96 11/17/17 17:12 98.0 90 16 146/66 (92) 97 Physical Exam Left hip nontender range of motion Right hip tender limited range of motion Bilateral pulses intact Bialteral 2-3+ edema bialteral 2+ knee effusion neuro intact Laboratory Laboratory Tests Test 11/17/17 17:36 11/17/17 21:30 11/18/17 00:10 11/18/17 05:14 White Blood Count 10.6 8.7 Red Blood Count 3.77 3.61 Hemoglobin 10.9 10.5 Hematocrit 32.6 31.1 Mean Corpuscular Volume 86.7 86.0 Mean Corpuscular Hemoglobin 29.0 29.0 Mean Corpuscular Hemoglobin Concent 33.4 33.8 Red Cell Distribution Width 14.0 14.2 Platelet Count 270 260 Mean Platelet Volume 7.7 8.3 Neutrophils (%) (Auto) 89.7 74.8 Lymphocytes (%) (Auto) 4.4 9.8 Monocytes (%) (Auto) 5.5 13.2 Eosinophils (%) (Auto) 0.1 1.7 Basophils (%) (Auto) 0.3 0.5 Neutrophils # (Auto) 9.5 6.5 Lymphocytes # (Auto) 0.5 0.9 Monocytes # (Auto) 0.6 1.2 Eosinophils # (Auto) 0.0 0.2 Basophils # (Auto) 0.0 0.0 CBC Comment DIFF FINAL DIFF FINAL Differential Comment Prothrombin Time 11.5 Prothromb Time International Ratio 1.1 Activated Partial Thromboplast Time 28.6 47.4 Blood Urea Nitrogen 10 8 Creatinine 0.76 0.58 Random Glucose 134 82 Total Protein 6.8 6.2 Albumin 3.2 2.9 Calcium Level 9.1 8.3 Magnesium Level 1.9 Alkaline Phosphatase 96 85 Aspartate Amino Transf (AST/SGOT) 63 65 Alanine Aminotransferase (ALT/SGPT) 28 23 Total Bilirubin 0.8 0.7 Sodium Level 138 140 Potassium Level 3.6 3.0 Chloride Level 104 106 Carbon Dioxide Level 25.4 25.4 Anion Gap 9 9 Estimat Glomerular Filtration Rate 72 98 Troponin I 0.20 0.18 0.17 Thyroid Stimulating Hormone 3rd Gen 3.080 Urine Color YELLOW Urine Turbidity CLEAR Urine pH 6.0 Urine Specific [place] 1.019 Urine Protein 30 Urine Glucose (UA) NEG Urine Ketones 10 Urine Occult Blood TRACE Urine Nitrite NEG Urine Bilirubin NEG Urine Urobilinogen LESS THAN 2.0 Urine Leukocyte Esterase TRACE Urine RBC 5 Urine WBC 3 Urine Squamous Epithelial Cells <1 Urine Mucus FEW Microscopic Urinalysis Comment CULT NOT INDICATED Result Diagram: 11/18/1714 11/18/17513 Assessment & Plan Problem List: (1) Osteoarthritis of right hip ICD Codes: M16.11 - Unilateral primary osteoarthritis, right hip Assessment and Plan Severe fight hip osteoarthritis She is indicated for medical management for her edema, ankle erythema and elevated troponin levels. Current conservative management for hip: Physical therapy Ultracet I am available if any orthopedic questions arise. Ariel Billings MD Nov 18, 2017 08:04
[2017-11-18] MEDS: METOPROLOL TARTRATE 25 MG TAB PO SCH ×2 (09:21→21:05)
[2017-11-18] MEDS: LOSARTAN 50 MG TAB PO SCH (09:21)
[2017-11-18] MEDS: DOCUSATE SODIUM 50 MG/SENNA 8.6 MG TAB PO SCH ×2 (09:21→21:05)
[2017-11-18] MEDS: SODIUM CHLORIDE 0.9% FLUSH 10 ML FLUSH IV FLUSH SCH ×2 (09:21→21:05)
--- NOTE | 2017-11-18 09:40 | MB ---
cc: NAE JOHNSON MD DATE OF CONSULTATION 11/18/2017 REASON FOR CONSULTATION Elevated troponin. HISTORY OF PRESENT ILLNESS Mrs. Alana Singleton is an 87-year-old patient who does have a history of hypertension and hyperlipidemia. She also has a history of severe arthritis and had a pending hip surgery. She consequently within the last month underwent nuclear stress test which showed normal perfusion and ejection fraction. The patient reports that she was having difficulties with her gait and fell which precipitated her emergency room visit. She had denied any cardiac complaints including chest pain, shortness of breath, palpitations. She did note, however, that she had lower extremity edema up her thigh with bright pink coloring. Her primary placed her on antibiotics several days ago and she is doing better. PAST MEDICAL HISTORY 1. Pernicious anemia. 2. Arthritis. 3. Dizziness. 4. Dyspnea on exertion. 5. Hypertension. 6. Hyperlipidemia. 7. Mild mitral and tricuspid regurgitation. 8. Hypothyroidism. OUTPATIENT MEDICATIONS 1. Synthroid. 2. Amlodipine. 3. B12. 4. Lasix. 5. Losartan. 6. Meclizkine. 7. Metoprolol. 8. Simvastatin. FAMILY HISTORY Noncontributory. SOCIAL HISTORY The patient is a former smoker. ALLERGIES HYDROCODONE. NIACIN. REVIEW OF SYSTEMS Except as mentioned in the HPI, all 12 systems are negative. PHYSICAL EXAMINATION VITAL SIGNS: On physical examination vital signs are stable. IN GENERAL: She is a well-appearing female who is in no apparent distress. NECK: Her neck is free from JVD. LUNGS: Bilaterally clear to auscultation. CARDIOVASCULAR EXAMINATION: She has a normal S1 and S2. There is a 2/6 systolic murmur. No rubs or gallops are appreciated. ABDOMEN: The abdomen is soft. EXTREMITIES: The extremities have 1+ edema and are erythematous. IMPRESSIONS Elevated troponin - The patient's troponin is somewhat flatly elevated at about 0.2. It is doubtful that it is a primary non-ST elevation [place], though this cannot be completely excluded at this time. The troponins may be elevated from CHF versus secondary to her fall versus [place] versus other. Again, she just had a normal nuclear stress test and has not had any cardiac symptoms thus I think it is doubtful it is a primary [place]. At this point I would like to have further evaluation with a CK and MB to help discern if this is perhaps from her fall. As well I have requested an echocardiogram to also help sort through and make sure her EF is normal. Orthopedic Clearance - While the patient was at moderate risk previously, right now her risk would be high to prohibitive as she is apparently having an acute event and further clarification is needed. Cellulitis - This will be managed by the primary team as the antibiotics were started as an outpatient by her primary. Nae Johnson M.D. LEN/SSB /9:11 AM /9:27 AM
--- NOTE | 2017-11-18 11:13 | EKG ---
Date Performed: 11/17/2017 Time Performed: 19:08:20 PTAGE: 87 years EKG: Sinus rhythm POSSIBLE LEFT ATRIAL ENLARGEMENT BORDERLINE ECG Since the prior tracing, there has been no significa nt change PREVIOUS TRACING DOCTOR: Juan Pablo Viramontes Interpretating Date/Time 11/18/2017 11:07:00
[2017-11-18] MEDS ORDERED: POTASSIUM CHLORIDE 10 MEQ CONTROLLED RELEASE TAB PO ONE ×2 (13:00→17:00)
--- NOTE | 2017-11-18 13:01 | HHI.PR ---
Subjective Remarks resting comfortably with no distress. denies chest pain or sob. afebrile. d/w the RN. Objective Vitals Vital Signs Date Time Temp Pulse Resp B/P (MAP) Pulse Ox O2 Delivery O2 Flow Rate FiO2 11/18/17 08:00 98.4 73 18 153/64 (93) 98 11/18/17 08:00 90 11/18/17 06:00 60 11/18/17 05:00 64 11/18/17 04:00 62 11/18/17 03:45 70 16 136/68 (90) 95 11/18/17 03:00 63 11/18/17 02:00 82 11/18/17 01:20 82 11/18/17 01:06 98.0 77 18 158/73 (101) 95 11/18/17 01:02 11/18/17 00:20 82 16 163/71 (101) 97 Nasal Cannula 2.00 11/17/17 22:00 80 16 136/65 (88) 96 Nasal Cannula 2.00 11/17/17 21:00 80 18 167/66 (99) 96 Nasal Cannula 2.00 11/17/17 20:00 74 17 170/71 (104) 93 Room Air 11/17/17 19:11 18 92 Room Air 11/17/17 18:53 74 18 159/66 (97) 95 Room Air 11/17/17 18:53 73 96 11/17/17 17:12 98.0 90 16 146/66 (92) 97 I/O 11/17/17 11/17/17 11/17/17 11/18/17 11/18/17 11/18/17 06:59 14:59 22:59 06:59 14:59 22:59 Intake Total 671 ml Balance 671 ml Intake Oral 240 ml IV Total 431 ml # Voids 1 # Bowel Movements 0 Result Diagram: 11/18/17 0514 11/18/17 0514 Imaging Last Impressions Chest X-Ray 11/17/17 1722 Signed Impressions: Service Date/Time: Friday, November 17, 2017 17:56 - CONCLUSION: No acute disease. Wolf Melendez MD Lumbar Spine X-Ray 11/17/17 0000 Signed Impressions: Service Date/Time: Friday, November 17, 2017 18:00 - CONCLUSION: Osteopenia or osteoporosis. Degenerative facet arthritic change L4-5 and L5-S1 Wolf Melendez MD Hip and Pelvis X-Ray 11/17/17 0000 Signed Impressions: Service Date/Time: Friday, November 17, 2017 18:00 - CONCLUSION: Severe degenerative change of the right hip. Wolf Melendez MD Objective Remarks GENERAL: This is a well-nourished, well-developed patient, in no apparent distress. CARDIOVASCULAR: Regular rate and regular rhythm without murmurs, gallops, or rubs. RESPIRATORY: Clear to auscultation. Breath sounds equal bilaterally. No wheezes , rales, or rhonchi. GASTROINTESTINAL: Abdomen soft, non-tender, nondistended. Normal, active bowel sounds MUSCULOSKELETAL: lower extremities with bilateral pedal edema and some erythema NEURO: Alert & Oriented x4 to person, place, time, situation. Moves all ext x4 Medications and IVs Inpatient Medications Acetaminophen (Tylenol) 650 mg Q6H PRN PO FEVER/PAIN SCALE 1 TO 2; Start at 19:30 Aspirin (Aspirin) 325 mg ONCE ONCE PO Last administered on 11/17/17at 20:43; Start 11/17/17 at 19:15; Stop 11/17/17 at 19:16; Status DC Bisacodyl (Dulcolax Supp) 10 mg DAILY PRN RECTAL SEVERE CONSITIPATION; Start at 19:30 Heparin Sodium/ Dextrose 250 ml @ 9 mls/hr TITRATE PRN IV Coagulation Management Last administered on 11/17/17at 21:49; Start 11/17/17 at 19:30 Lactulose (Lactulose Liq) 30 ml DAILY PRN PO SEVERE CONSITIPATION; Start at 19:30 Levothyroxine Sodium (Synthroid) 112 mcg MoTuWeThFrSa@0600 PO Last administered on 11/18/17at 05:49; Start 11/18/17 at 06:00 Losartan Potassium (Cozaar) 50 mg DAILY PO Last administered on 11/18/17at 09:21 ; Start 11/18/17 at 09:00 Magnesium Hydroxide (Milk Of Magnesia Liq) 30 ml Q12H PRN PO Mild constipation ; Start 11/17/17 at 19:30 Metoprolol Tartrate (Lopressor) 25 mg Q12HR PO Last administered on 11/18/17at 09:21; Start 11/17/17 at 21:00 Morphine Sulfate (Morphine Inj) 2 mg Q3H PRN IV PUSH Pain 6-10; Start 11/17/17 at 19:30 Nitroglycerin (Nitroglycerin 2% Oint) 0.5 inch Q6H PRN TOPICAL CHEST PAIN; Start 11/17/17 at 19:30 Ondansetron HCl (Zofran Inj) 4 mg Q6H PRN IVP NAUSEA OR VOMITING; Start at 19:30 Pneumococcal Polyvalent Vaccine (Pneumovax-23 Inj) 25 mcg ONCE ONCE IM ; Start 11/19/17 at 10:00; Stop 11/19/17 at 10:01 Senna/Docusate Sodium (Becki-Colace) 1 tab BID PO Last administered on at 09:21; Start 11/17/17 at 21:00 Sennosides (Senokot) 17.2 mg Q12H PRN PO Moderate constipation; Start 11/17/17 at 19:30 Sodium Chloride (NS Flush) 2 ml BID IV FLUSH Last administered on 11/18/17at 09: 21; Start 11/17/17 at 21:00 Tramadol/ Acetaminophen (Ultracet 37.5-325 Mg) 1 tab Q4H PRN PO pain; Start 09/23 at 08:00; Status UNV A/P Problem List: (1) NSTEMI (non-ST elevated myocardial infarction) ICD Code: I21.4 - Non-ST elevation (NSTEMI) myocardial infarction Status: Acute (2) Right hip pain ICD Code: M25.551 - Pain in right hip (3) Recurrent falls ICD Code: R29.6 - Repeated falls (4) Dehydration ICD Code: E86.0 - Dehydration Assessment and Plan A/P 1. mildly elevated troponin-now is pain free- started on heparin drip- echo pending- cardiology consult appreciated. 2. Right Hip Pain: Acute on Chronic. Progressive. Secondary to severe degenerative disease. ortho consult appreciated; conservative treatment with pain control and PT. 3. Recurrent Falls: secondary to hip pain w/ worsening functional status. No head trauma or LOC reported. Lumbar X-ray w/ no acute findings. PT for eval/ tx. Will likely need social work assistance for placement as pt lives alone. 4. cellulitis both legs- start on IV Ancef- will monitor the response. 5.hypokalemia; will replace and monitor. 6. DVT Prophylaxis: Heparin gtt Discharge Planning pending PT evaluation/ cardiac work-up. Murtaza Sales MD Nov 18, 2017 13:01
[2017-11-18] MEDS ORDERED: traMADol/ACETAMINOPHEN 37.5/325 1 TAB PO PRN (16:00)
--- NOTE | 2017-11-18 19:14 | ECHRPT ---
Indication: chf CONCLUSIONS The left ventricular systolic function is hyperdynamic with an estimated ejection fraction in the ra nge of 65- 70%. Normal left ventricular size. [id number] mitral valve regurgitation. There is mild tricuspid valve regurgitation. BP: / HR: Rhythm: MEASUREMENTS (Male / Female) Normal Values Technical Quality:Fair 2D ECHO LV Diastolic Diameter PLAX 4.0 cm 4.2 - 5.9 / 3.9 - 5.3 cm LV Systolic Diameter PLAX 2.7 cm IVS Diastolic Thickness 1.1 cm 0.6 - 1.0 / 0.6 - 0.9 cm LVPW Diastolic Thickness 0.9 cm 0.6 - 1.0 / 0.6 - 0.9 cm LV Relative Wall Thickness 0.5 RV Internal Dim ED PLAX 2.7 cm M-MODE Aortic Root Diameter MM 3.4 cm LA Systolic Diameter MM 3.5 cm LA Ao Ratio MM 1.0 AV Cusp Separation MM 1.4 cm DOPPLER Mitral E Point Velocity 54.3 cm/s Mitral A Point Velocity 62.2 cm/s Mitral E to A Ratio 0.9 LV E' Lateral Velocity 7.5 cm/s Mitral E to LV E' Lateral Ratio 7.2 LV E' Septal Velocity 7.4 cm/s Mitral E to LV E' Septal Ratio 7.3 FINDINGS LEFT VENTRICLE The left ventricular systolic function is hyperdynamic with an estimated ejection fraction in the ra nge of 65- 70%. Normal left ventricular size. RIGHT VENTRICLE Normal right ventricular size and systolic function. LEFT ATRIUM The left atrial size is normal. RIGHT ATRIUM The right atrial size is normal. ATRIAL SEPTUM Normal atrial septal thickness without atrial level shunting by limited color doppler interrogation. AORTA The aortic root and proximal ascending aorta are normal in size on limited imaging. MITRAL VALVE Structurally normal mitral valve. [id number] mitral valve regurgitation. AORTIC VALVE Trileaflet aortic valve. No aortic valve regurgitation. No aortic valve stenosis. TRICUSPID VALVE Structurally normal tricuspid valve. There is mild tricuspid valve regurgitation. PULMONARY VALVE The pulmonary valve is not well visualized. VESSELS The inferior vena cava is normal in size. PERICARDIUM No pericardial effusion. Lopez Huddleston MD, FACC (Electronically Signed) Final Date:18 November 2017 19:14
[2017-11-18] MEDS: HEPARIN-D5W 25,000 U/250 ML 250 ML IV PRN (21:01)
[2017-11-18] MEDS: MORPHINE SULFATE 2 MG/ML INJ IV PUSH PRN (21:14)
[2017-11-19] VITALS (25 sets, daily range): BP systolic 140–177; BP diastolic 68–79; PULSE 67–92; RESP 16–20; TEMP 97.8–98.6; O2SAT 96–99
[2017-11-19] MEDS: LEVOTHYROXINE SODIUM 112 MCG TAB PO SCH (05:48)
[2017-11-19] MEDS: SODIUM CHLOR 0.9% 1000 ML INJ 1,000 ML IV SCH (05:48)
[2017-11-19] MEDS: METOPROLOL TARTRATE 25 MG TAB PO SCH (06:30)
[2017-11-19 07:20] LABS: CALCIUM 8.2 MG/DL (8.5-10.1); CREATININE 0.54 MG/DL (0.50-1.00); MAGNESIUM 1.9 MG/DL (1.5-2.5)
[2017-11-19] MEDS: LOSARTAN 50 MG TAB PO SCH (08:51)
[2017-11-19] MEDS: DOCUSATE SODIUM 50 MG/SENNA 8.6 MG TAB PO SCH ×2 (08:52→20:46)
[2017-11-19] MEDS: SODIUM CHLORIDE 0.9% FLUSH 10 ML FLUSH IV FLUSH SCH ×2 (08:52→20:47)
--- NOTE | 2017-11-19 09:28 | HHI.PR ---
Subjective Remarks in no acute distress. denies chest pain or sob. d/w the RN and no acute issues over night. Objective Vitals Vital Signs Date Time Temp Pulse Resp B/P (MAP) Pulse Ox O2 Delivery O2 Flow Rate FiO2 11/19/17 07:25 Nasal Cannula 2.00 11/19/17 07:25 98.0 72 18 154/78 (103) 99 11/19/17 06:00 75 11/19/17 05:00 80 11/19/17 05:00 98.6 80 20 155/74 (101) 96 11/19/17 02:00 77 11/19/17 01:00 76 11/19/17 00:00 67 11/18/17 23:00 98.2 76 20 165/80 (108) 98 11/18/17 23:00 75 11/18/17 22:00 76 11/18/17 21:19 18 11/18/17 21:00 92 11/18/17 21:00 97 Nasal Cannula 2.00 11/18/17 21:00 98.4 92 18 184/81 (115) 97 11/18/17 16:00 98.2 89 16 172/76 (108) 97 11/18/17 16:00 97 Room Air 2.00 11/18/17 16:00 73 11/18/17 13:00 76 11/18/17 12:00 74 11/18/17 12:00 100 Nasal Cannula 2.00 11/18/17 12:00 98.3 74 16 159/65 (96) 100 11/18/17 11:00 68 I/O 11/18/17 11/18/17 11/18/17 11/19/17 11/19/17 11/19/17 07:00 15:00 23:00 07:00 15:00 23:00 Intake Total 671 ml 350 ml 480 ml Output Total 550 ml Balance 671 ml 350 ml -70 ml Intake Oral 240 ml 480 ml IV Total 431 ml 350 ml Output Urine Total 550 ml # Voids 1 # Bowel Movements 0 Result Diagram: 11/18/17 0514 11/19/17 0501 Imaging Last Impressions Chest X-Ray 11/17/17 1722 Signed Impressions: Service Date/Time: Friday, November 17, 2017 17:56 - CONCLUSION: No acute disease. Wolf Melendez MD Lumbar Spine X-Ray 11/17/17 0000 Signed Impressions: Service Date/Time: Friday, November 17, 2017 18:00 - CONCLUSION: Osteopenia or osteoporosis. Degenerative facet arthritic change L4-5 and L5-S1 Wolf Melendez MD Hip and Pelvis X-Ray 11/17/17 0000 Signed Impressions: Service Date/Time: Friday, November 17, 2017 18:00 - CONCLUSION: Severe degenerative change of the right hip. Wolf Melendez MD Objective Remarks GENERAL: This is a well-nourished, well-developed patient, in no apparent distress. CARDIOVASCULAR: Regular rate and regular rhythm without murmurs, gallops, or rubs. RESPIRATORY: Clear to auscultation. Breath sounds equal bilaterally. No wheezes , rales, or rhonchi. GASTROINTESTINAL: Abdomen soft, non-tender, nondistended. Normal, active bowel sounds MUSCULOSKELETAL: lower extremities with bilateral pedal edema and some erythema - seems to be improving. NEURO: Alert & Oriented x4 to person, place, time, situation. Moves all ext x4 Medications and IVs Inpatient Medications Acetaminophen (Tylenol) 650 mg Q6H PRN PO FEVER/PAIN SCALE 1 TO 2; Start at 19:30; Stop 11/18/17 at 15:17; Status DC Aspirin (Aspirin) 325 mg ONCE ONCE PO Last administered on 11/17/17at 20:43; Start 11/17/17 at 19:15; Stop 11/17/17 at 19:16; Status DC Bisacodyl (Dulcolax Supp) 10 mg DAILY PRN RECTAL SEVERE CONSITIPATION; Start at 19:30 Cefazolin Sodium 1000 mg/Sodium Chloride 100 ml @ 200 mls/hr Q8H IV Last administered on 11/19/17at 05:48; Start 11/18/17 at 14:00 Heparin Sodium/ Dextrose 250 ml @ 9 mls/hr TITRATE PRN IV Coagulation Management Last administered on 11/18/17at 21:01; Start 11/17/17 at 19:30 Lactulose (Lactulose Liq) 30 ml DAILY PRN PO SEVERE CONSITIPATION; Start at 19:30 Levothyroxine Sodium (Synthroid) 112 mcg MoTuWeThFrSa@0600 PO Last administered on 11/19/17at 05:48; Start 11/18/17 at 06:00 Losartan Potassium (Cozaar) 50 mg DAILY PO Last administered on 11/19/17at 08:51 ; Start 11/18/17 at 09:00 Magnesium Hydroxide (Milk Of Magndenise Liq) 30 ml Q12H PRN PO Mild constipation ; Start 11/17/17 at 19:30 Metoprolol Tartrate (Lopressor) 25 mg Q12HR PO Last administered on 11/19/17at 06:30; Start 11/17/17 at 21:00 Morphine Sulfate (Morphine Inj) 2 mg Q3H PRN IV PUSH Pain 6-10 Last administered on 11/18/17at 21:14; Start 11/17/17 at 19:30 Nitroglycerin (Nitroglycerin 2% Oint) 0.5 inch Q6H PRN TOPICAL CHEST PAIN; Start 11/17/17 at 19:30 Ondansetron HCl (Zofran Inj) 4 mg Q6H PRN IVP NAUSEA OR VOMITING; Start at 19:30 Pneumococcal Polyvalent Vaccine (Pneumovax-23 Inj) 25 mcg ONCE ONCE IM ; Start 11/19/17 at 10:00; Stop 11/19/17 at 10:01 Potassium Chloride (KCl) 30 meq ONCE ONCE PO Last administered on 11/18/17at 17 :42; Start 11/18/17 at 17:00; Stop 11/18/17 at 17:01; Status DC Senna/Docusate Sodium (Becki-Colace) 1 tab BID PO Last administered on at 08:52; Start 11/17/17 at 21:00 Sennosides (Senokot) 17.2 mg Q12H PRN PO Moderate constipation; Start 11/17/17 at 19:30 Sodium Chloride (NS Flush) 2 ml BID IV FLUSH Last administered on 11/18/17at 21: 05; Start 11/17/17 at 21:00 Tramadol/ Acetaminophen (Ultracet 37.5-325 Mg) 1 tab Q4H PRN PO PAIN SCALE 1 TO 10; Start 11/18/17 at 16:00 A/P Problem List: (1) NSTEMI (non-ST elevated myocardial infarction) ICD Code: I21.4 - Non-ST elevation (NSTEMI) myocardial infarction Status: Acute (2) Right hip pain ICD Code: M25.551 - Pain in right hip (3) Recurrent falls ICD Code: R29.6 - Repeated falls (4) Dehydration ICD Code: E86.0 - Dehydration Assessment and Plan A/P 1. mildly elevated troponin-now is pain free- started on heparin drip- echo with EF 60%- cardiology consult appreciated. 2. Right Hip Pain: Acute on Chronic. Progressive. Secondary to severe degenerative disease. ortho consult appreciated; conservative treatment with pain control and PT. 3. Recurrent Falls: secondary to hip pain w/ worsening functional status. No head trauma or LOC reported. Lumbar X-ray w/ no acute findings. PT for eval/ tx. Will likely need social work assistance for placement as pt lives alone. 4. cellulitis both legs-seems to be improving- started on IV Ancef- will monitor the response. 5.hypokalemia; replaced. 6. DVT Prophylaxis: Heparin gtt Discharge Planning dc planning to rehab within the next one-two days if stable and cleared by cardiology. Murtaza Sales MD Nov 19, 2017 09:28
[2017-11-19] MEDS ORDERED: PNEUMOCOCCAL POLYVALENT INJ 25 MCG/0.5 ML SYR IM ONE (10:00)
[2017-11-19] MEDS: MORPHINE SULFATE 2 MG/ML INJ IV PUSH PRN (16:05)
[2017-11-19] MEDS ORDERED: METOPROLOL TARTRATE 5 MG/5 ML VIAL IV PUSH PRN (17:45)
--- NOTE | 2017-11-19 17:53 | PD.CARD.PN ---
Subjective Subjective Remarks Pt without CV complaints, when questioned directly -slight flutter Objective Medications Current Medications Medications (Trade) Dose Ordered Sig/Juan Route Start Time Stop Time Status Last Admin Heparin Sodium/ Dextrose 250 ml @ 9 mls/hr TITRATE PRN IV 11/17/17 19:30 11/18/17 21:01 (Lopressor) 25 mg Q12HR PO 11/17/17 21:00 11/19/17 06:30 (Nitroglycerin 2% Oint) 0.5 inch Q6H PRN TOPICAL 11/17/17 19:30 Sodium Chloride 1,000 ml @ 100 mls/hr Q10H IV 11/17/17 20:00 11/19/17 05:48 (NS Flush) 2 ml UNSCH PRN IV FLUSH 11/17/17 19:30 (NS Flush) 2 ml BID IV FLUSH 11/17/17 21:00 11/18/17 21:05 (Zofran Inj) 4 mg Q6H PRN IVP 11/17/17 19:30 (Morphine Inj) 2 mg Q3H PRN IV PUSH 11/17/17 19:30 11/19/17 16:05 (Becki-Colace) 1 tab BID PO 11/17/17 21:00 11/19/17 08:52 (Milk Of Magnesia Liq) 30 ml Q12H PRN PO 11/17/17 19:30 (Senokot) 17.2 mg Q12H PRN PO 11/17/17 19:30 (Dulcolax Supp) 10 mg DAILY PRN RECTAL 11/17/17 19:30 (Lactulose Liq) 30 ml DAILY PRN PO 11/17/17 19:30 (Synthroid) 50 mcg Bowman@0600 PO 11/24/17 06:00 (Synthroid) 112 mcg MoTuWeThFrSa@0600 PO 11/18/17 06:00 11/19/17 05:48 (Cozaar) 50 mg DAILY PO 11/18/17 09:00 11/19/17 08:51 (Ultracet 37.5-325 Mg) 1 tab Q4H PRN PO 11/18/17 16:00 Cefazolin Sodium 1000 mg/Sodium Chloride 100 ml @ 200 mls/hr Q8H IV 11/18/17 14:00 11/19/17 15:18 (Lopressor Inj) 5 mg Q5M PRN IV PUSH 11/19/17 17:45 UNV Vital Signs / I&O Vital Signs Date Time Temp Pulse Resp B/P (MAP) Pulse Ox O2 Delivery O2 Flow Rate FiO2 11/19/17 15:19 98.5 84 18 177/79 (111) 97 11/19/17 11:14 98.5 78 18 164/68 (100) 99 11/19/17 07:25 Nasal Cannula 2.00 11/19/17 07:25 98.0 72 18 154/78 (103) 99 11/19/17 06:00 75 11/19/17 05:00 80 11/19/17 05:00 98.6 80 20 155/74 (101) 96 11/19/17 02:00 77 11/19/17 01:00 76 11/19/17 00:00 67 11/18/17 23:00 98.2 76 20 165/80 (108) 98 11/18/17 23:00 75 11/18/17 22:00 76 11/18/17 21:19 18 11/18/17 21:00 92 11/18/17 21:00 97 Nasal Cannula 2.00 11/18/17 21:00 98.4 92 18 184/81 (115) 97 I/O 11/18/17 11/18/17 11/18/17 11/19/17 11/19/17 11/19/17 07:00 15:00 23:00 07:00 15:00 23:00 Intake Total 671 ml 350 ml 480 ml Output Total 550 ml Balance 671 ml 350 ml -70 ml Intake Oral 240 ml 480 ml IV Total 431 ml 350 ml Output Urine Total 550 ml # Voids 1 # Bowel Movements 0 Physical Exam GENERAL: Well developed, well nourished. No acute distress. HEENT: Jugular venous pressure is normal. CHEST: Lungs clear to auscultation bilaterally. Unlabored respiratory effort. CARDIAC: Regular rate and rhythm without S3, S4, or murmur. ABDOMEN: Soft, nontender, no hepatosplenomegaly. Bowel sounds present. EXTREMITIES: No clubbing, cyanosis, + erythema. Laboratory Laboratory Tests Test 11/18/17 21:19 11/19/17 05:01 11/19/17 05:10 Activated Partial Thromboplast Time 26.8 SEC 39.5 SEC Blood Urea Nitrogen 7 MG/DL Creatinine 0.54 MG/DL Random Glucose 75 MG/DL Calcium Level 8.2 MG/DL Magnesium Level 1.9 MG/DL Sodium Level 138 MEQ/L Potassium Level 4.1 MEQ/L Chloride Level 108 MEQ/L Carbon Dioxide Level 21.0 MEQ/L Anion Gap 9 MEQ/L Estimat Glomerular Filtration Rate 106 ML/MIN Total Creatine Kinase 762 U/L Creatine Kinase MB 3.3 NG/ML Creatine Kinase MB % 0.4 % Imaging Last 72 hours Impressions Chest X-Ray 11/17/17 1722 Signed Impressions: Service Date/Time: Friday, November 17, 2017 17:56 - CONCLUSION: No acute disease. Wolf Melendez MD Lumbar Spine X-Ray 11/17/17 0000 Signed Impressions: Service Date/Time: Friday, November 17, 2017 18:00 - CONCLUSION: Osteopenia or osteoporosis. Degenerative facet arthritic change L4-5 and L5-S1 Wolf Melendez MD Hip and Pelvis X-Ray 11/17/17 0000 Signed Impressions: Service Date/Time: Friday, November 17, 2017 18:00 - CONCLUSION: Severe degenerative change of the right hip. Wolf Melendez MD Assessment and Plan Problem List: (1) Elevated troponin ICD Codes: R74.8 - Abnormal levels of other serum enzymes Plan: CK and trop elevated from falls- NO NSTEMI (2) Atrial fibrillation ICD Codes: I48.91 - Unspecified atrial fibrillation Plan: new onset AF with RVR -increase metoprolol -shelter anticoagulation relatively contraindicated with multiple falls (3) Multiple falls ICD Codes: R29.6 - Repeated falls Status: Acute (4) Cellulitis ICD Codes: L03.90 - Cellulitis, unspecified (5) Arthritis of hip ICD Codes: M16.10 - Unilateral primary osteoarthritis, unspecified hip Status: Acute (6) Dehydration ICD Codes: E86.0 - Dehydration (7) NSTEMI (non-ST elevated myocardial infarction) ICD Codes: I21.4 - Non-ST elevation (NSTEMI) myocardial infarction Status: Acute Plan: NO WA- enzymes up from fall normal EF on ECHO Chiquis Rice MD Nov 19, 2017 17:53
[2017-11-19] MEDS: HEPARIN-D5W 25,000 U/250 ML 250 ML IV PRN (19:28)
[2017-11-19] MEDS: METOPROLOL TARTRATE 50 MG TAB PO SCH (20:46)
[2017-11-20] VITALS (27 sets, daily range): BP systolic 149–176; BP diastolic 63–83; PULSE 66–118; RESP 16–18; TEMP 97.4–98.3; O2SAT 92–99
[2017-11-20] MEDS: MORPHINE SULFATE 2 MG/ML INJ IV PUSH PRN ×3 (03:18→11:22)
[2017-11-20 07:08] LABS: HEMATOCRIT 32.1 % (35.0-46.0); HEMOGLOBIN 10.6 GM/DL (11.6-15.3); MEAN CELL VOLUME 85.4 FL (80.0-100.0); MEAN CORPUSCULAR HEMOGLOBIN 28.2 PG (27.0-34.0); MEAN CORPUSCULAR HGB CONC 33.1 % (32.0-36.0); MEAN PLATELET VOLUME 8.5 FL (7.0-11.0); PLATELET COUNT 290 TH/MM3 (150-450); RED BLOOD COUNT 3.76 MIL/MM3 (4.00-5.30); WHITE BLOOD COUNT 9.6 TH/MM3 (4.0-11.0)
[2017-11-20] MEDS: LEVOTHYROXINE SODIUM 112 MCG TAB PO SCH (07:08)
[2017-11-20] MEDS: DOCUSATE SODIUM 50 MG/SENNA 8.6 MG TAB PO SCH ×2 (08:40→21:00)
[2017-11-20] MEDS: METOPROLOL TARTRATE 50 MG TAB PO SCH ×2 (08:40→22:54)
[2017-11-20] MEDS: SODIUM CHLORIDE 0.9% FLUSH 10 ML FLUSH IV FLUSH SCH ×2 (08:41→22:54)
--- NOTE | 2017-11-20 08:51 | HHI.PR ---
Subjective Remarks in no acute distress. denies chest pain, sob or dizziness. no fever. BP trend noted. d/w the RN at the bedside. Objective Vitals Vital Signs Date Time Temp Pulse Resp B/P (MAP) Pulse Ox O2 Delivery O2 Flow Rate FiO2 11/20/17 08:13 Nasal Cannula 2.00 11/20/17 08:13 98.1 81 17 170/80 (110) 98 11/20/17 06:00 76 11/20/17 05:00 118 11/20/17 04:00 98.3 79 16 153/70 (97) 98 11/20/17 04:00 70 11/20/17 03:00 72 11/20/17 02:00 72 11/20/17 01:00 70 11/20/17 00:00 73 11/20/17 00:00 98.1 73 16 154/77 (102) 96 11/19/17 23:00 70 11/19/17 22:00 71 11/19/17 21:00 70 11/19/17 20:00 72 11/19/17 20:00 97.8 72 16 140/68 (92) 96 11/19/17 20:00 96 Nasal Cannula 2.00 11/19/17 19:00 70 11/19/17 18:00 76 11/19/17 17:00 78 11/19/17 16:20 17 11/19/17 16:00 74 11/19/17 15:19 98.5 84 18 177/79 (111) 97 11/19/17 15:00 92 11/19/17 14:00 72 11/19/17 13:00 70 11/19/17 12:00 82 11/19/17 11:14 98.5 78 18 164/68 (100) 99 11/19/17 11:00 78 11/19/17 10:00 80 11/19/17 09:00 82 I/O 11/19/17 11/19/17 11/19/17 11/20/17 11/20/17 11/20/17 07:00 15:00 23:00 07:00 15:00 23:00 Intake Total 480 ml 500 ml 240 ml Output Total 550 ml 100 ml 100 ml Balance -70 ml 400 ml 140 ml Intake Oral 480 ml 500 ml 240 ml Output Urine Total 550 ml 100 ml 100 ml # Voids 3 # Bowel Movements 0 Result Diagram: 11/20/17 0547 11/19/17 0501 Imaging Last Impressions Chest X-Ray 11/17/17 1722 Signed Impressions: Service Date/Time: Friday, November 17, 2017 17:56 - CONCLUSION: No acute disease. Wolf Melendez MD Lumbar Spine X-Ray 11/17/17 0000 Signed Impressions: Service Date/Time: Friday, November 17, 2017 18:00 - CONCLUSION: Osteopenia or osteoporosis. Degenerative facet arthritic change L4-5 and L5-S1 Wolf Melendez MD Hip and Pelvis X-Ray 11/17/17 0000 Signed Impressions: Service Date/Time: Friday, November 17, 2017 18:00 - CONCLUSION: Severe degenerative change of the right hip. Wolf Melendez MD Objective Remarks GENERAL: This is a well-nourished, well-developed patient, in no apparent distress. CARDIOVASCULAR: Regular rate and regular rhythm without murmurs, gallops, or rubs. RESPIRATORY: Clear to auscultation. Breath sounds equal bilaterally. No wheezes , rales, or rhonchi. GASTROINTESTINAL: Abdomen soft, non-tender, nondistended. Normal, active bowel sounds MUSCULOSKELETAL: lower extremities with bilateral pedal edema and some erythema - seems to be improving. NEURO: Alert & Oriented x4 to person, place, time, situation. Moves all ext x4 Procedures none Medications and IVs Inpatient Medications Acetaminophen (Tylenol) 650 mg Q6H PRN PO FEVER/PAIN SCALE 1 TO 2; Start at 19:30; Stop 11/18/17 at 15:17; Status DC Aspirin (Aspirin) 325 mg ONCE ONCE PO Last administered on 11/17/17at 20:43; Start 11/17/17 at 19:15; Stop 11/17/17 at 19:16; Status DC Bisacodyl (Dulcolax Supp) 10 mg DAILY PRN RECTAL SEVERE CONSITIPATION; Start at 19:30 Cefazolin Sodium 1000 mg/Sodium Chloride 100 ml @ 200 mls/hr Q8H IV Last administered on 11/20/17at 05:26; Start 11/18/17 at 14:00 Heparin Sodium/ Dextrose 250 ml @ 9 mls/hr TITRATE PRN IV Coagulation Management Last administered on 11/19/17 19:28; Start 11/17/17 at 19:30 Lactulose (Lactulose Liq) 30 ml DAILY PRN PO SEVERE CONSITIPATION; Start at 19:30 Levothyroxine Sodium (Synthroid) 112 mcg MoTuWeThFrSa@0600 PO Last administered on 11/20/17 07:08; Start 11/18/17 at 06:00 Losartan Potassium (Cozaar) 50 mg DAILY PO Last administered on 11/19/17at 08:51 ; Start 11/18/17 at 09:00; Stop 11/19/17 at 17:55; Status DC Magnesium Hydroxide (Milk Of Magnesia Liq) 30 ml Q12H PRN PO Mild constipation ; Start 11/17/17 at 19:30 Metoprolol Tartrate (Lopressor Inj) 5 mg Q5M PRN IV PUSH RAPID HEART RATE Last administered on 11/20/17 05:13; Start 11/19/17 at 17:45 Metoprolol Tartrate (Lopressor) 50 mg Q12HR PO Last administered on 11/19/17at 20:46; Start 11/19/17 at 21:00 Morphine Sulfate (Morphine Inj) 2 mg Q3H PRN IV PUSH Pain 6-10 Last administered on 11/20/17 05:57; Start 11/17/17 at 19:30 Nitroglycerin (Nitroglycerin 2% Oint) 0.5 inch Q6H PRN TOPICAL CHEST PAIN; Start 11/17/17 at 19:30; Stop 11/19/17 at 17:55; Status DC Ondansetron HCl (Zofran Inj) 4 mg Q6H PRN IVP NAUSEA OR VOMITING Last administered on 11/20/17at 05:57; Start 11/17/17 at 19:30 Pneumococcal Polyvalent Vaccine (Pneumovax-23 Inj) 25 mcg ONCE ONCE IM Last administered on 11/19/17at 11:03; Start 11/19/17 at 10:00; Stop 11/19/17 at 10:01 ; Status DC Potassium Chloride (KCl) 30 meq ONCE ONCE PO Last administered on 11/18/17at 17 :42; Start 11/18/17 at 17:00; Stop 11/18/17 at 17:01; Status DC Senna/Docusate Sodium (Becki-Colace) 1 tab BID PO Last administered on at 20:46; Start 11/17/17 at 21:00 Sennosides (Senokot) 17.2 mg Q12H PRN PO Moderate constipation; Start 11/17/17 at 19:30 Sodium Chloride (NS Flush) 2 ml BID IV FLUSH Last administered on 11/19/17at 20: 47; Start 11/17/17 at 21:00 Tramadol/ Acetaminophen (Ultracet 37.5-325 Mg) 1 tab Q4H PRN PO PAIN SCALE 1 TO 10; Start 11/18/17 at 16:00 A/P Problem List: (1) NSTEMI (non-ST elevated myocardial infarction) ICD Code: I21.4 - Non-ST elevation (NSTEMI) myocardial infarction Status: Acute (2) Right hip pain ICD Code: M25.551 - Pain in right hip (3) Recurrent falls ICD Code: R29.6 - Repeated falls (4) Dehydration ICD Code: E86.0 - Dehydration Assessment and Plan A/P 1. mildly elevated troponin-now is pain free- started on heparin drip- echo with EF 60%- cardiology consult appreciated. 2. Right Hip Pain: Acute on Chronic. Progressive. Secondary to severe degenerative disease. ortho consult appreciated; conservative treatment with pain control and PT. 3. Recurrent Falls: secondary to hip pain w/ worsening functional status. No head trauma or LOC reported. Lumbar X-ray w/ no acute findings. PT for eval/ tx. Will likely need social work assistance for placement as pt lives alone. 4. cellulitis both legs-seems to be improving- started on IV Ancef- will switch to Keflex upon discharge. 5.hypokalemia; replaced. 6. atrial fibrillation with RVR- echo as noted above- continue metoprolol- high risk for anticoagulation due to falls. 7. DVT Prophylaxis: Heparin gtt Discharge Planning dc planning to rehab within the next 24 hrs if stable and cleared by cardiology. see med list. f/u; pcp and cardiology. d/w the patient and RN. time spent 35 min. Murtaza Sales MD Nov 20, 2017 08:51
[2017-11-20] MEDS ORDERED: CEPH-459 PO (08:53)
[2017-11-20] MEDS ORDERED: ASPI-516 CHEW (08:53)
[2017-11-20] MEDS ORDERED: traMADol-ACETAMIN 37.5-325 MG PO (08:53)
--- NOTE | 2017-11-20 08:56 | HHI.DS ---
Discharge Summary Admission Date Nov 17, 2017 at 19:28 Discharge Date: Nov 20, 2017 Admitting Diagnosis NSTEMI, multiple falls, inabiltiy to ambulate (1) Right hip pain ICD Code: M25.551 - Pain in right hip Diagnosis: Principal (2) Recurrent falls ICD Code: R29.6 - Repeated falls Diagnosis: Principal (3) Elevated troponin ICD Code: R74.8 - Abnormal levels of other serum enzymes Procedures none Brief History - From Admission This is an 87-year-old female with a PMH of HTN, Hypothyroidism, Arthritis, Anemia and Chronic Right Hip Pain was brought to the ER by EMS secondary to right hip pain with difficulty ambulating. Per patient, she's been following w / Dr. Billings for right hip pain, s/p PT and right hip injections w/ minimal improvement. Plan was for likely surgical intervention, however referred to Dr. Rice for pre-op clearance. Per patient, seen by Dr. Rice w/ normal work up. Today, w/ persistent right hip pain, unable to ambulate even w / walker. Pain is constant, severe, 10/10, worse w/ movement and ambulation. Multiple falls due to hip pain and gait instability. No head trauma or LOC. On arrival, BP 146/66, HR 90, O2 sat 97% on RA, Afebrile. CBC essentially unremarkable. GFR 72. Troponin 0.20. EKG with no acute ischemia. CXR no acute findings. Hip X-ray with severe degenerative change of the right hip. Lumbar X-ray osteopenia or osteoporosis. S/p ASA, started on Heparin gtt. Dr. Thomas consulted, will eval in am. CBC/BMP: 11/20/17 0547 11/19/17 0501 Significant Findings Laboratory Tests Test 11/17/17 17:36 11/17/17 21:30 11/18/17 00:10 11/18/17 05:14 Red Blood Count 3.77 MIL/MM3 (4.00-5.30) 3.61 MIL/MM3 (4.00-5.30) Hemoglobin 10.9 GM/DL (11.6-15.3) 10.5 GM/DL (11.6-15.3) Hematocrit 32.6 % (35.0-46.0) 31.1 % (35.0-46.0) Neutrophils (%) (Auto) 89.7 % (16.0-70.0) 74.8 % (16.0-70.0) Lymphocytes (%) (Auto) 4.4 % (9.0-44.0) Neutrophils # (Auto) 9.5 TH/MM3 (1.8-7.7) Lymphocytes # (Auto) 0.5 TH/MM3 (1.0-4.8) 0.9 TH/MM3 (1.0-4.8) Random Glucose 134 MG/DL (74-106) Albumin 3.2 GM/DL (3.4-5.0) 2.9 GM/DL (3.4-5.0) Aspartate Amino Transf (AST/SGOT) 63 U/L (15-37) 65 U/L (15-37) Estimat Glomerular Filtration Rate 72 ML/MIN (>89) Troponin I 0.20 NG/ML (0.02-0.05) 0.18 NG/ML (0.02-0.05) 0.17 NG/ML (0.02-0.05) Urine Protein 30 mg/dL (NEG-TRACE) Urine Ketones 10 mg/dL (NEG) Urine Occult Blood TRACE (NEG) Urine Leukocyte Esterase TRACE (NEG) Urine RBC 5 /hpf (0-3) Urine Mucus FEW /lpf (OCC) Monocytes (%) (Auto) 13.2 % (0.0-8.0) Monocytes # (Auto) 1.2 TH/MM3 (0-0.9) Activated Partial Thromboplast Time 47.4 SEC (24.3-30.1) Total Protein 6.2 GM/DL (6.4-8.2) Calcium Level 8.3 MG/DL (8.5-10.1) Potassium Level 3.0 MEQ/L (3.5-5.1) Test 11/18/17 14:28 11/18/17 21:19 11/19/17 05:01 11/19/17 05:10 Activated Partial Thromboplast Time 41.5 SEC (24.3-30.1) 39.5 SEC (24.3-30.1) Total Creatine Kinase 1166 U/L (26-192) 762 U/L (26-192) Creatine Kinase MB 6.8 NG/ML (0.5-3.6) Calcium Level 8.2 MG/DL (8.5-10.1) Chloride Level 108 MEQ/L (98-107) Test 11/19/17 17:57 11/20/17 05:47 Activated Partial Thromboplast Time 56.8 SEC (24.3-30.1) 52.1 SEC (24.3-30.1) Red Blood Count 3.76 MIL/MM3 (4.00-5.30) Hemoglobin 10.6 GM/DL (11.6-15.3) Hematocrit 32.1 % (35.0-46.0) Imaging Last Impressions Chest X-Ray 11/17/17 1722 Signed Impressions: Service Date/Time: Friday, November 17, 2017 17:56 - CONCLUSION: No acute disease. Wolf Melendez MD Lumbar Spine X-Ray 11/17/17 0000 Signed Impressions: Service Date/Time: Friday, November 17, 2017 18:00 - CONCLUSION: Osteopenia or osteoporosis. Degenerative facet arthritic change L4-5 and L5-S1 Wolf Melendez MD Hip and Pelvis X-Ray 11/17/17 0000 Signed Impressions: Service Date/Time: Friday, November 17, 2017 18:00 - CONCLUSION: Severe degenerative change of the right hip. Wolf Melendez MD PE at Discharge GENERAL: This is a well-nourished, well-developed patient, in no apparent distress. CARDIOVASCULAR: Regular rate and regular rhythm without murmurs, gallops, or rubs. RESPIRATORY: Clear to auscultation. Breath sounds equal bilaterally. No wheezes , rales, or rhonchi. GASTROINTESTINAL: Abdomen soft, non-tender, nondistended. Normal, active bowel sounds MUSCULOSKELETAL: lower extremities with bilateral pedal edema and some erythema - seems to be improving. NEURO: Alert & Oriented x4 to person, place, time, situation. Moves all ext x4 Hospital Course patient was admitted with elevated troponin and right hip pain. she was evaluated by cardiology - she developed a-fib for which she was continued on metoprolol- high risk for anticoagulation due to falls- per cardiology. she will be started on aspirin. ortho recommended PT and pain control. she will be discharged to rehab with f/u with pcp, cardiology and ortho. Pt Condition on Discharge: Fair Discharge Disposition: Discharge to SNF Discharge Time: > 30 minutes Discharge Instructions DIET: Follow Instructions for: Heart Healthy Diet Activities you can perform: Regular-No Restrictions Murtaza Sales MD Nov 20, 2017 08:56
--- NOTE | 2017-11-20 09:00 | EKG ---
Date Performed: 11/19/2017 Time Performed: 06:05:46 PTAGE: 87 years EKG: Probable atrial fibrillation with uncontrolled ventricular response Extensive ST-T changes may be due to myocardial ischemia Abnormal ECG PREVIOUS TRACING : 11/19/2017 06.05 Since prior tracing, likely atrial fibrillation with rapid ventricular rate has replaced Sinus rhythm with frequent PACs. Diffuse ST changes are new. Consider ischemia, but it may be rate dependent. DOCTOR: Vidal Del Valle Interpretating Date/Time 11/20/2017 08:58:35
--- NOTE | 2017-11-20 09:49 | EKG ---
Date Performed: 11/19/2017 Time Performed: 06:05:14 PTAGE: 87 years EKG: Sinus rhythm with PACs and a short atrial run Borderline ECG PREVIOUS TRACING : 11/17/2017 19.08 Since the prior tracing, the atrial ectopy is new. DOCTOR: Vidal Del Valle Interpretating Date/Time 11/20/2017 09:48:56
[2017-11-20] MEDS: LOSARTAN 50 MG TAB PO SCH (11:05)
[2017-11-20] MEDS: SODIUM CHLOR 0.9% 1000 ML INJ 1,000 ML IV SCH (17:38)
--- NOTE | 2017-11-20 21:50 | EKG ---
Date Performed: 11/19/2017 Time Performed: 17:39:58 PTAGE: 87 years EKG: Probable atrial fibrillation with uncontrolled ventricular response. Extensive ST-T changes may be due to myocardial ischemia Abnormal ECG NO PREVIOUS TRACING DOCTOR: Rodriguez Stewart Interpretating Date/Time 11/20/2017 21:48:32
[2017-11-20] MEDS: HEPARIN-D5W 25,000 U/250 ML 250 ML IV PRN (23:04)
[2017-11-21] VITALS (16 sets, daily range): BP systolic 146–163; BP diastolic 71–76; PULSE 64–98; RESP 18–20; TEMP 97.1–98; O2SAT 92–99
[2017-11-21] MEDS: MORPHINE SULFATE 2 MG/ML INJ IV PUSH PRN (02:01)
[2017-11-21] MEDS: SODIUM CHLOR 0.9% 1000 ML INJ 1,000 ML IV SCH (04:00)
[2017-11-21] MEDS: LEVOTHYROXINE SODIUM 112 MCG TAB PO SCH (06:00)
--- NOTE | 2017-11-21 07:56 | HHI.PR ---
Subjective Remarks in no distress. denies chest pain or sob. afebrile. Objective Vitals Vital Signs Date Time Temp Pulse Resp B/P (MAP) Pulse Ox O2 Delivery O2 Flow Rate FiO2 11/21/17 06:42 73 11/21/17 04:00 97.1 76 18 163/76 (105) 92 11/21/17 04:00 78 11/21/17 03:00 94 11/21/17 02:00 80 11/21/17 01:00 70 11/21/17 00:00 72 11/20/17 23:00 97.4 83 18 159/71 (100) 92 11/20/17 22:00 76 11/20/17 21:00 80 11/20/17 20:00 70 11/20/17 20:00 97.4 77 18 149/63 (91) 95 11/20/17 20:00 Nasal Cannula 2.00 11/20/17 19:00 81 11/20/17 18:00 72 11/20/17 17:00 72 11/20/17 16:00 72 11/20/17 15:13 98.1 74 18 163/67 (99) 99 11/20/17 15:00 75 11/20/17 14:00 70 11/20/17 13:00 72 11/20/17 12:00 74 11/20/17 11:30 16 11/20/17 11:27 98.3 87 17 176/83 (114) 97 11/20/17 11:00 66 11/20/17 10:00 66 11/20/17 09:00 82 11/20/17 08:13 Nasal Cannula 2.00 11/20/17 08:13 98.1 81 17 170/80 (110) 98 11/20/17 08:00 76 I/O 11/20/17 11/20/17 11/20/17 11/21/17 11/21/17 11/21/17 07:00 15:00 23:00 07:00 15:00 23:00 Intake Total 240 ml 540 ml 240 ml Output Total 100 ml 300 ml 175 ml Balance 140 ml 240 ml 65 ml Intake Oral 240 ml 540 ml 240 ml Output Urine Total 100 ml 300 ml 175 ml # Voids 4 # Bowel Movements 0 Result Diagram: 11/20/17 0547 11/19/17 0501 Imaging Last Impressions Chest X-Ray 11/17/17 1722 Signed Impressions: Service Date/Time: Friday, November 17, 2017 17:56 - CONCLUSION: No acute disease. Wolf Melendez MD Lumbar Spine X-Ray 11/17/17 0000 Signed Impressions: Service Date/Time: Friday, November 17, 2017 18:00 - CONCLUSION: Osteopenia or osteoporosis. Degenerative facet arthritic change L4-5 and L5-S1 Wolf Melendez MD Hip and Pelvis X-Ray 11/17/17 0000 Signed Impressions: Service Date/Time: Friday, November 17, 2017 18:00 - CONCLUSION: Severe degenerative change of the right hip. Wolf Melendez MD Objective Remarks GENERAL: This is a well-nourished, well-developed patient, in no apparent distress. CARDIOVASCULAR: Regular rate and regular rhythm without murmurs, gallops, or rubs. RESPIRATORY: Clear to auscultation. Breath sounds equal bilaterally. No wheezes , rales, or rhonchi. GASTROINTESTINAL: Abdomen soft, non-tender, nondistended. Normal, active bowel sounds MUSCULOSKELETAL: lower extremities with bilateral pedal edema and some erythema - improved. NEURO: Alert & Oriented x4 to person, place, time, situation. Moves all ext x4 Procedures none Medications and IVs Inpatient Medications Acetaminophen (Tylenol) 650 mg Q6H PRN PO FEVER/PAIN SCALE 1 TO 2; Start at 19:30; Stop 11/18/17 at 15:17; Status DC Aspirin (Aspirin) 325 mg ONCE ONCE PO Last administered on 11/17/17at 20:43; Start 11/17/17 at 19:15; Stop 11/17/17 at 19:16; Status DC Bisacodyl (Dulcolax Supp) 10 mg DAILY PRN RECTAL SEVERE CONSITIPATION; Start at 19:30 Cefazolin Sodium 1000 mg/Sodium Chloride 100 ml @ 200 mls/hr Q8H IV Last administered on 11/21/17at 06:00; Start 11/18/17 at 14:00 Heparin Sodium/ Dextrose 250 ml @ 9 mls/hr TITRATE PRN IV Coagulation Management Last administered on 11/20/17at 23:04; Start 11/17/17 at 19:30 Lactulose (Lactulose Liq) 30 ml DAILY PRN PO SEVERE CONSITIPATION; Start at 19:30 Levothyroxine Sodium (Synthroid) 112 mcg MoTuWeThFrSa@0600 PO Last administered on 11/21/17at 06:00; Start 11/18/17 at 06:00 Losartan Potassium (Cozaar) 50 mg DAILY PO Last administered on 11/20/17at 11:05 ; Start 11/20/17 at 09:00 Magnesium Hydroxide (Milk Of Magndenise Liq) 30 ml Q12H PRN PO Mild constipation ; Start 11/17/17 at 19:30 Metoprolol Tartrate (Lopressor Inj) 5 mg Q5M PRN IV PUSH RAPID HEART RATE Last administered on 11/20/17 05:13; Start 11/19/17 at 17:45 Metoprolol Tartrate (Lopressor) 50 mg Q12HR PO Last administered on 11/20/17at 22:54; Start 11/19/17 at 21:00 Morphine Sulfate (Morphine Inj) 2 mg Q3H PRN IV PUSH Pain 6-10 Last administered on 11/21/17at 02:01; Start 11/17/17 at 19:30 Nitroglycerin (Nitroglycerin 2% Oint) 0.5 inch Q6H PRN TOPICAL CHEST PAIN; Start 11/17/17 at 19:30; Stop 11/19/17 at 17:55; Status DC Ondansetron HCl (Zofran Inj) 4 mg Q6H PRN IVP NAUSEA OR VOMITING Last administered on 11/20/17at 05:57; Start 11/17/17 at 19:30 Pneumococcal Polyvalent Vaccine (Pneumovax-23 Inj) 25 mcg ONCE ONCE IM Last administered on 11/19/17at 11:03; Start 11/19/17 at 10:00; Stop 11/19/17 at 10:01 ; Status DC Potassium Chloride (KCl) 30 meq ONCE ONCE PO Last administered on 11/18/17at 17 :42; Start 11/18/17 at 17:00; Stop 11/18/17 at 17:01; Status DC Senna/Docusate Sodium (Becki-Colace) 1 tab BID PO Last administered on at 08:40; Start 11/17/17 at 21:00 Sennosides (Senokot) 17.2 mg Q12H PRN PO Moderate constipation; Start 11/17/17 at 19:30 Sodium Chloride (NS Flush) 2 ml BID IV FLUSH Last administered on 11/20/17at 22: 54; Start 11/17/17 at 21:00 Tramadol/ Acetaminophen (Ultracet 37.5-325 Mg) 1 tab Q4H PRN PO PAIN SCALE 1 TO 10; Start 11/18/17 at 16:00 A/P Problem List: (1) Right hip pain ICD Code: M25.551 - Pain in right hip (2) Recurrent falls ICD Code: R29.6 - Repeated falls (3) Elevated troponin ICD Code: R74.8 - Abnormal levels of other serum enzymes Assessment and Plan A/P 1. mildly elevated troponin-now is pain free- started on heparin drip- echo with EF 60%- cardiology consult appreciated. 2. Right Hip Pain: Acute on Chronic. Progressive. Secondary to severe degenerative disease. ortho consult appreciated; conservative treatment with pain control and PT. 3. Recurrent Falls: secondary to hip pain w/ worsening functional status. No head trauma or LOC reported. Lumbar X-ray w/ no acute findings. PT for eval/ tx. Will likely need social work assistance for placement as pt lives alone. 4. cellulitis both legs-seems to be improving- started on IV Ancef- will switch to Keflex upon discharge. 5.hypokalemia; replaced. 6. atrial fibrillation with RVR- echo as noted above- continue metoprolol- high risk for anticoagulation due to falls. 7. DVT Prophylaxis: Heparin gtt Discharge Planning dc to rehab today. see med list. f/u; pcp and cardiology. d/w the patient and RN. d/w . time spent 35 min. Murtaza Sales MD Nov 21, 2017 07:56
[2017-11-21] MEDS: LOSARTAN 50 MG TAB PO SCH (09:42)
[2017-11-21] MEDS: DOCUSATE SODIUM 50 MG/SENNA 8.6 MG TAB PO SCH (09:42)
[2017-11-21] MEDS: METOPROLOL TARTRATE 50 MG TAB PO SCH (09:42)
[2017-11-21] MEDS: SODIUM CHLORIDE 0.9% FLUSH 10 ML FLUSH IV FLUSH SCH (09:42)
[2017-11-24] MEDS ORDERED: LEVOTHYROXINE SODIUM 50 MCG TAB PO SCH (06:00)
== END 2017-11-21 16:29 | DRG 554 ==
LOC: NEPE 17:04 → NEDA 19:28 → HCIS 11-18 00:59
PROVIDERS: ADMIT Hospitalist; ATTEND Hospitalist
DX: M16.11 Unilateral primary osteoarthritis, right hip (principal); L03.115 Cellulitis of right lower limb; I48.91 Unspecified atrial fibrillation; I08.1 Rheumatic disorders of both mitral and tricuspid valves; E86.0 Dehydration; D51.0 Vitamin B12 deficiency anemia due to intrinsic factor deficiency; L03.116 Cellulitis of left lower limb; I10 Essential (primary) hypertension; E03.9 Hypothyroidism, unspecified; E78.5 Hyperlipidemia, unspecified; G89.29 Other chronic pain; R29.6 Repeated falls; R26.2 Difficulty in walking, not elsewhere classified; R74.8 Abnormal levels of other serum enzymes; E87.6 Hypokalemia; Z87.891 Personal history of nicotine dependence; Z23 Encounter for immunization
CPT/HCPCS: 71045; 72020; 73501; 76937; 80048; 80053; 81001; 82550; 82552; 83735; 84443; 84484; 85025; 85027; 85610; 85730; 90732; 93005; 93306; J0690; J1644; J2270; J2405; J7030

== ENCOUNTER → 2018-01-29 | Outpatient (CLI) | payer MEDICARE, OTHER ==
[~2018-01-29] MED LIST changes: -ACET325S8 PO; -ADVI200C9 PO; -ASPI-130 PO; +ASPI-516 CHEW; -BENI40TA30 PO; +CEPH-459 PO; -CRAN1000 PO; -CYAN1000P IM; +LEVO50TA4 PO; +LOSA50TA PO; -MAGN400T19 PO; +METO50TA PO; +SYNT112T PO; -SYNT125T PO; -TOPR50TA PO; -VITA20002 PO; -[UNRECOGNIZED DRUG - CODE] PO; +traMADol-ACETAMIN 37.5-325 MG PO
--- NOTE | 2018-01-29 14:28 | RADRPT ---
EXAM DATE/TIME: 01/29/2018 13:55 [facility] COMPARISON: No previous studies available for comparison. INDICATIONS : Cough. MEDICAL HISTORY : Hypertension. SURGICAL HISTORY : None. ENCOUNTER: Initial ACUITY: 1 day PAIN SCORE: 0/10 LOCATION: Bilateral chest FINDINGS: PA and lateral views of the chest demonstrate the lungs to be symmetrically aerated without evidence of mass, infiltrate or effusion. Marked hyperinflation. Dense atherosclerotic disease. The cardiomedi astinal contours are unremarkable. Osseous structures are intact. CONCLUSION: Normal examination. Mild hyperinflation. Stuart Santo MD on January 29, 2018 at 14:25 Board Certified Radiologist. This report was verified electronically.
--- NOTE | 2018-02-04 10:17 | RSPPFT ---
DATE OF PROCEDURE: 01/29/18 COMMENTS: Spirometry demonstrates an FEV1 of 1.3 at 85% of predicted, FVC of 1.9 at 81%, FEF 25-75 at 85%. Post-bronchodilator study demonstrated minimal improvement in the FVC. Lung volumes demonstrated a raised RV/TLC ratio suggesting hyperinflation with air trapping. Diffusion capacity is moderately reduced. Flow volume loops are mildly atypical due to lack of proper patient effort. IMPRESSION: 1. Essentially normal pulmonary function study. 2. Mild response to use of bronchodilator indicating reactive airways. 3. Hyperinflation with air trapping. 4. Moderate loss in diffusion capacity.
== END ==
LOC: HRSP 12:29
PROVIDERS: ATTEND Internal Medicine Pulmonary Disease
DX: J40 Bronchitis, not specified as acute or chronic (principal); I10 Essential (primary) hypertension; R06.00 Dyspnea, unspecified
CPT/HCPCS: 71046; 94060; 94726; 94729